=== PATIENT | male | born 1955 | race Hispanic/Latino ===

== ENCOUNTER 2018-09-30 17:30 | Inpatient (IN) | payer OTHER | END 2018-10-05 13:50 | disposition home or self-care (01) | LOC: 2AH 17:30 | PROC: 4A023N8 Measurement of Cardiac Sampling and Pressure, Bilateral, Percutaneous Approach (ICD-10-PCS; principal; ~2018-09-30) | PROC: B2161ZZ Fluoroscopy of Right and Left Heart using Low Osmolar Contrast (ICD-10-PCS; ~2018-09-30) | DX: I24.9 Acute ischemic heart disease, unspecified (principal); I50.43 Acute on chronic combined systolic (congestive) and diastolic (congestive) heart failure; I11.0 Hypertensive heart disease with heart failure; R00.1 Bradycardia, unspecified; I25.10 Atherosclerotic heart disease of native coronary artery without angina pectoris; I05.2 Rheumatic mitral stenosis with insufficiency; I27.20 Pulmonary hypertension, unspecified ==

== ENCOUNTER 2018-12-12 10:00 | Inpatient (IN) | payer OTHER ==
[~2018-12-12] VITALS: Ht 172.7 cm; Wt 127.9 kg
[~2018-12-12 10:00] MED LIST: AMIO200T5 PO; ATOR20TA65 PO; CARV6.25 PO; ISOS30TA6 PO; LEVO175T64 PO; LISI40TA4 PO
[2018-12-13 12:42] VITALS: BP 134/59
[2018-12-13 12:55] LABS: HEMOGLOBIN A1C 6.9 % (4.0-6.0)
[2018-12-13 13:05] LABS: CREATININE 1.9 mg/dL (0.5-1.5); POTASSIUM 5.7 mmol/L (3.5-5.1)
[2018-12-13 13:12] LABS: INR 1.05 (0.85-1.15); PARTIAL THROMBOPLASTIN TIME 28.4 SEC (26.3-35.5)
[2018-12-13] MEDS ORDERED: RIVA20TA PO (13:22)
[2018-12-13] MEDS ORDERED: FURO20TA4 PO (13:25)
[2018-12-13] MEDS ORDERED: [UNRECOGNIZED DRUG - MIXTURE] (13:25)
[2018-12-13] MEDS ORDERED: CINN500C PO (13:25)
--- NOTE | 2018-12-13 13:31 | NUR ---
PT TOOK XERALTO TODAY 12-13-18 IN AM. CALLED NAKITA MENDIOLA RN AND IS AWARE NO NEW ORDERS AT THIS TIME.
[2018-12-13 13:49] LABS: BASOPHILS % (AUTO) 0.7 % (0.0-5.0); EOSINOPHILS % (AUTO) 1.5 % (0.0-8.0); LYMPHOCYTES % (AUTO) 15.2 % (21.0-51.0); MEAN CORPUSCULAR HEMOGLOBIN 31.9 pg (27.0-33.0); MEAN CORPUSCULAR HGB CONC 34.7 g/dL (32.0-36.0); MONOCYTES % (AUTO) 7.1 % (3.0-13.0); NEUTROPHILS % (AUTO) 75.5 % (40.0-77.0); NUCLEATED RED BLOOD CELLS 0.2 % (0.0-0.19); PLATELET COUNT (AUTO) 140 K/uL (130-400); RED BLOOD CELL COUNT(AUTO) 3.58 MIL/uL (4.50-6.20); RED CELL DISTRIBUTION WIDTH 16.4 % (11.0-15.5); WHITE BLOOD COUNT (AUTO) 6.5 K/uL (4.8-10.8)
[2018-12-16] VITALS (26 sets, daily range): BP systolic 76–132; BP diastolic 32–75
[2018-12-16] MEDS: CEFUROXIME SODIUM 1.5 GM VIAL IVP SCH ×2 (05:00→11:25)
[2018-12-16] MEDS ORDERED: SODIUM CHLORIDE 0.9% 1000ML 1,000 ML IV ONE (06:40)
--- NOTE | 2018-12-16 07:15 | NUR ---
POTENTIAL FOR INFECTION: SHAVED FROM CHIN TO BILATERAL FEET PER ZINA TAPIA, FOLLOWED BY WIPING WITH EDMOND: 2% CHLORHEXIDINE GLUCONATE PATIENTS PRE-OP SKIN PREP.
[2018-12-16] MEDS ORDERED: NITROGLYCERIN 50 MG/D5% WATER 1 BOT ONE (07:44)
[2018-12-16] MEDS ORDERED: DELNIDO FORMULA 2 BAG IV ONE (10:35)
[2018-12-16] MEDS ORDERED: NOREPINEPHRINE BITARTRATE 1 MG/1 ML ML IV ONE ×3 (10:37→19:00)
[2018-12-16] MEDS ORDERED: ONDANSETRON HCL 4 MG/2 ML VIAL ONE (11:09)
[2018-12-16] MEDS ORDERED: PROPOFOL 10 MG/ML 20ML VIAL IV ONE (11:09)
[2018-12-16] MEDS ORDERED: LIDOCAINE PF 2% 5ML ABBOJECT ONE ×2 (11:09→11:12)
[2018-12-16] MEDS ORDERED: GLYCOPYRROLATE 1 MG/5 ML SYRINGE ONE ×2 (11:09→15:41)
[2018-12-16] MEDS ORDERED: DEXAMETHASONE SOD PHOSPHATE 10MG/ML 1ML VIAL ONE (11:09)
[2018-12-16] MEDS ORDERED: SUCCINYLCHOLINE 200MG/10ML SYR ONE (11:09)
[2018-12-16] MEDS ORDERED: NEOSTIGMINE 5MG/5ML SYR IV ONE (11:10)
[2018-12-16] MEDS ORDERED: MIDAZOLAM HCL 1 MG/ML 2ML VIAL ONE ×2 (11:11→11:13)
[2018-12-16] MEDS ORDERED: ROCURONIUM 10MG/1ML SYR 10 MG/ML ML ONE ×2 (11:11→11:13)
[2018-12-16] MEDS ORDERED: FENTANYL CITRATE PF 50 MCG/1 ML 2ML VIAL ONE (11:11)
[2018-12-16] MEDS ORDERED: SODIUM BICARB 50MEQ 50ML VIAL ONE ×3 (11:12→15:52)
[2018-12-16] MEDS ORDERED: ESMOLOL HCL 10 MG/ML 10 ML VIAL ONE (11:12)
[2018-12-16] MEDS ORDERED: PROTAMINE SULFATE 10 MG/ML 25ML VIAL IV ONE (11:12)
[2018-12-16] MEDS ORDERED: EPINEPHRINE 1 MG/ML AMPULE ONE (11:12)
[2018-12-16] MEDS ORDERED: HEPARIN SODIUM 1000UNIT/ML 10ML VIAL ONE (11:12)
[2018-12-16] MEDS ORDERED: FENTANYL CITRATE PF 50 MCG/1 ML 20ML VIAL IJ ONE (11:13)
[2018-12-16] MEDS ORDERED: AMINOCAPROIC ACID 250 MG/ML 20 ML VIAL IV ONE ×2 (11:13→13:40)
[2018-12-16] MEDS ORDERED: PAPAVERINE HCL 30 MG/ML 2ML VIAL ONE (12:00)
[2018-12-16] MEDS ORDERED: OCTYL 2-CYANOACRYLATE 1 EACH TP ONE (12:00)
[2018-12-16] MEDS ORDERED: BACITRACIN 50,000 UNIT VIAL ONE (12:01)
[2018-12-16 12:17] LABS: ABG HCO3 17.2 mmol/L (21.0-28.0); ABG OXYGEN SATURATION 98.9 % (95.0-99.0); ABG PCO2 34 mmHg (35-48)
[2018-12-16] MEDS ORDERED: Q-PUMP 1 EACH IRRIG SCH (12:30)
[2018-12-16] MEDS ORDERED: SODIUM CHLORIDE 0.9% 250 ML IV PRN (12:30)
[2018-12-16] MEDS ORDERED: PROPOFOL 1000 MG/100 ML 100 ML IV PRN (12:30)
[2018-12-16] MEDS ORDERED: ALBUMIN (HUMAN) 5% 250 ML IV PRN (12:30)
[2018-12-16] MEDS ORDERED: POTASSIUM PHOS 15 mMOL+NS250ML 250 ML IV PRN (12:30)
[2018-12-16] MEDS ORDERED: SODIUM CHLORIDE 0.9% 1000ML 1,000 ML IV SCH (12:30)
[2018-12-16] MEDS ORDERED: AMINOCAPROIC ACID 15,000 MG in SODIUM CHLORIDE 0.9% 250 ML IV SCH (12:30)
[2018-12-16] MEDS ORDERED: GLUCAGON 1MG KIT 1 MG ML IM PRN (12:30)
[2018-12-16] MEDS ORDERED: SODIUM CHLORIDE 0.9% 10 ML VIAL IVP PRN (12:30)
[2018-12-16] MEDS ORDERED: ONDANSETRON HCL 4 MG/2 ML VIAL IV PRN (12:30)
[2018-12-16] MEDS ORDERED: MAGNESIUM 2GM PREMIX 50ML 50 ML IV PRN (12:30)
[2018-12-16] MEDS ORDERED: NITROGLYCERIN 50 MG/D5% WATER 250 BOT IV SCH (12:30)
[2018-12-16] MEDS ORDERED: NOREPINEPHRINE 4MG/NS 250ML 250 ML IV PRN (12:30)
[2018-12-16] MEDS ORDERED: ACETAMINOPHEN 650 MG SUPPOSITORY RC PRN (12:30)
[2018-12-16] MEDS ORDERED: ROPIVACAINE 0.2% 2MG/ML 100ML VIAL IJ ONE (13:00)
[2018-12-16 13:38] LABS: ABG BASE EXCESS -4.3 mmol/L (-2.0-3.0); ABG HCO3 20.8 mmol/L (21.0-28.0); ABG PCO2 38 mmHg (35-48)
[2018-12-16] MEDS ORDERED: MANNITOL 25% 50ML VIAL IV ONE (13:40)
[2018-12-16] MEDS ORDERED: PHENYLEPHRINE HCL 10 MG/ML 1ML VIAL IV ONE (13:40)
[2018-12-16] MEDS ORDERED: LIDOCAINE PF 2% 5ML ABBOJECT IVP ONE (13:40)
[2018-12-16] MEDS ORDERED: CALCIUM CHLORIDE 100 MG/ML 10 ML SYG IVP ONE (13:40)
[2018-12-16] MEDS ORDERED: MAGNESIUM SULFATE 1 GM/2 ML VIAL IM ONE (13:40)
[2018-12-16] MEDS ORDERED: ALBUMIN (HUMAN) 25% 50 ML IV ONE (13:40)
[2018-12-16] MEDS ORDERED: SODIUM BICARB 8.4% 50ML SYRINGE IVP ONE (13:40)
[2018-12-16] MEDS ORDERED: HEPARIN SODIUM 1000UNIT/ML 10ML VIAL IV ONE (13:40)
[2018-12-16 14:20] LABS: ABG BASE EXCESS -8.5 mmol/L (-2.0-3.0); ABG HCO3 17.5 mmol/L (21.0-28.0); ABG OXYGEN SATURATION 98.7 % (95.0-99.0); ABG PCO2 38 mmHg (35-48)
[2018-12-16 14:35] LABS: ABG BASE EXCESS -2.4 mmol/L (-2.0-3.0); ABG HCO3 23.3 mmol/L (21.0-28.0); ABG OXYGEN SATURATION 98.4 % (95.0-99.0); ABG PCO2 44 mmHg (35-48)
[2018-12-16] MEDS ORDERED: SUCCINYLCHOLINE CHLORIDE 20 MG/ML 10 ML VIAL IVP ONE (14:38)
[2018-12-16] MEDS ORDERED: ETOMIDATE 2 MG/ML 10 ML VIAL IVP ONE (14:38)
[2018-12-16] MEDS ORDERED: ROCURONIUM BROMIDE 10MG/1ML 5ML VL IV ONE (14:38)
[2018-12-16] MEDS ORDERED: INSULIN HUMULIN R 100 UNIT/ML 3ML ONE (14:39)
[2018-12-16 15:06] LABS: ABG BASE EXCESS -6.8 mmol/L (-2.0-3.0); ABG HCO3 19.3 mmol/L (21.0-28.0); ABG OXYGEN SATURATION 98.1 % (95.0-99.0); ABG PCO2 41 mmHg (35-48)
[2018-12-16 15:23] LABS: ABG BASE EXCESS -2.3 mmol/L (-2.0-3.0); ABG HCO3 23.9 mmol/L (21.0-28.0); ABG OXYGEN SATURATION 96.8 % (95.0-99.0); ABG PCO2 48 mmHg (35-48)
[2018-12-16] MEDS ORDERED: AMIODARONE HCL 50 MG/ML 3 ML VIAL ONE (15:33)
[2018-12-16] MEDS ORDERED: ROPIVACAINE 0.5% 5MG/ML 30ML IJ ONE (15:45)
[2018-12-16] MEDS ORDERED: CEFUROXIME SODIUM 1.5 GM VIAL ONE (15:50)
[2018-12-16] MEDS ORDERED: SODIUM BICARB 8.4% 50ML SYRINGE ONE (15:55)
[2018-12-16 15:56] LABS: ABG BASE EXCESS -6.1 mmol/L (-2.0-3.0); ABG HCO3 18.4 mmol/L (21.0-28.0); ABG OXYGEN SATURATION 98.4 % (95.0-99.0); ABG PCO2 32 mmHg (35-48)
[2018-12-16 16:18] LABS: ABG BASE EXCESS -1.4 mmol/L (-2.0-3.0); ABG HCO3 22.4 mmol/L (21.0-28.0); ABG OXYGEN SATURATION 98.1 % (95.0-99.0); ABG PCO2 34 mmHg (35-48)
[2018-12-16] MEDS ORDERED: VASOPRESSIN 20 UNITS/ML 1ML VIAL ONE (16:28)
[2018-12-16] MEDS ORDERED: EPHEDRINE SULFATE 50 MG/ML AMPULE ONE (16:48)
[2018-12-16] MEDS ORDERED: COAGULATION FACTOR VIIA RECOMB 1 MG VIAL IV SCH (17:00)
[2018-12-16] MEDS ORDERED: ALBUMIN (HUMAN) 5% 250 ML IV ONE (17:12)
--- NOTE | 2018-12-16 17:15 | NUR ---
ARRIVAL TO CVR Report received from APRIL Hendrix. Orally intubated, tolerating vent settings as prescribed. Dr. Verde at bedside. Refer to physical assessment. 7.5 Fr IABP 40cc balloon to left femoral noted, no hematoma noted to site. Pulses by doppler. Ventricular paced at 80, tolerating temporary pacemaker settings. Will continue to monitor.
[2018-12-16 17:27] LABS: ABG BASE EXCESS -6.1 mmol/L (-2.0-3.0); ABG OXYGEN SATURATION 94.9 % (95.0-99.0); ABG PCO2 41 mmHg (35-48)
[2018-12-16] MEDS: SODIUM BICARB 50MEQ 50ML VIAL IV PRN ×5 (17:30→22:59)
[2018-12-16] MEDS: CEFAZOLIN SODIUM 1 GM VIAL IV SCH (17:30)
--- NOTE | 2018-12-16 18:08 | NUR ---
PT CARE IABC advanced by with placement confirmation by xray - reviewed by MD at bedside.
[2018-12-16] MEDS: EPINEPHRINE 8 MG in DEXTROSE 5%-WATER 250 ML IV PRN (18:15)
[2018-12-16] MEDS: CALCIUM GLUCONATE 1 GM in SODIUM CHLORIDE 0.9% 50 ML IV PRN ×4 (18:16→22:21)
[2018-12-16] MEDS: POTASSIUM CHLORIDE 20MEQ/100ML 100 ML IV PRN ×4 (18:18→23:49)
[2018-12-16] MEDS: VASOPRESSIN 20 UNITS in SODIUM CHLORIDE 0.9% 50 ML IV PRN ×2 (18:19→21:14)
[2018-12-16] MEDS: INSULIN REGULAR, HUMAN 3ML 100 UNIT in SODIUM CHLORIDE 0.9% 99 ML IV SCH ×2 (18:21)
[2018-12-16 18:49] LABS: ABG HCO3 31.8 mmol/L (21.0-28.0); ABG OXYGEN SATURATION 98.6 % (95.0-99.0); ABG PCO2 41 mmHg (35-48)
[2018-12-16] MEDS ORDERED: PHARMACY COMMUNICATION MISC SCH ×2 (19:00→19:15)
[2018-12-16 19:41] LABS: HEMATOCRIT 24.4 % (42-54); MEAN CORPUSCULAR HEMOGLOBIN 31.5 pg (27.0-33.0); MEAN CORPUSCULAR VOLUME 92.6 fL (79-99); NUCLEATED RED BLOOD CELLS 0.1 % (0.0-0.19); PLATELET COUNT (AUTO) 157 K/uL (130-400); RED BLOOD CELL COUNT(AUTO) 2.63 MIL/uL (4.50-6.20); RED CELL DISTRIBUTION WIDTH 15.8 % (11.0-15.5); WHITE BLOOD COUNT (AUTO) 20.3 K/uL (4.8-10.8)
--- NOTE | 2018-12-16 19:45 | NUR ---
MD NOTIFICATION Dr. Duke notified of status, labs, vital signs, pressors, new orders received and will carry out.
[2018-12-16 20:02] LABS: INR 1.09 (0.85-1.15); PARTIAL THROMBOPLASTIN TIME 28.7 SEC (26.3-35.5); PROTHROMBIN TIME 11.4 SEC (9.6-11.6)
[2018-12-16 20:07] LABS: ABG BASE EXCESS -5.8 mmol/L (-2.0-3.0); ABG HCO3 18.4 mmol/L (21.0-28.0); ABG OXYGEN SATURATION 98.2 % (95.0-99.0); ABG PCO2 32 mmHg (35-48)
[2018-12-16 20:12] LABS: CREATININE 1.2 mg/dL (0.5-1.5); MAGNESIUM 2.7 mg/dL (1.80-2.40); PHOSPHORUS 4.7 mg/dL (2.5-4.9); POTASSIUM 3.9 mmol/L (3.5-5.1)
--- NOTE | 2018-12-16 20:34 | NUR ---
CONSULT Dr. Milner occupational health nurse manager for [facility] notified of patient's arrival to CVR and status, no orders received.
[2018-12-16] MEDS: ATORVASTATIN CALCIUM 40 MG TABLET PO SCH (21:00)
[2018-12-16 21:07] LABS: ABG BASE EXCESS -0.8 mmol/L (-2.0-3.0); ABG HCO3 22.9 mmol/L (21.0-28.0); ABG OXYGEN SATURATION 97.6 % (95.0-99.0); ABG PCO2 34 mmHg (35-48)
[2018-12-16] MEDS: FAMOTIDINE/PF 20 MG/2 ML VIAL IV SCH (21:31)
[2018-12-16 22:19] LABS: ABG BASE EXCESS -0.4 mmol/L (-2.0-3.0); ABG HCO3 22.8 mmol/L (21.0-28.0); ABG PCO2 32 mmHg (35-48)
[2018-12-16] MEDS ORDERED: CALCIUM GLUCONATE 1 GM/10 ML VIAL IV ONE (22:19)
[2018-12-16 23:13] LABS: ABG BASE EXCESS 0.5 mmol/L (-2.0-3.0); ABG HCO3 23.3 mmol/L (21.0-28.0); ABG OXYGEN SATURATION 97.5 % (95.0-99.0); ABG PCO2 31 mmHg (35-48)
[2018-12-17] VITALS (79 sets, daily range): BP systolic 75–132; BP diastolic 32–84
--- NOTE | 2018-12-17 | NUR ---
DR. ERICH JUNG CALLED UPDATED ON PT STATUS LATEST VS, ABG, I&O, AND DRIPS REPORTED. NEW ORDERS RECEIVED AND WILL BE CARRIED OUT.
[2018-12-17 00:10] LABS: ABG BASE EXCESS -0.4 mmol/L (-2.0-3.0); ABG OXYGEN SATURATION 96.7 % (95.0-99.0); ABG PCO2 33 mmHg (35-48)
[2018-12-17] MEDS: SODIUM BICARB 50MEQ 50ML VIAL IV PRN (00:12)
--- NOTE | 2018-12-17 01:00 | NUR ---
STATUS PT BEGINNING TO WAKE UP AT THIS TIME. NODS YES OR NO TO QUESTIONS MOVES BILATERAL EXTS WITH SEVERE WEAKNESS.
[2018-12-17 01:18] LABS: ABG BASE EXCESS 2.1 mmol/L (-2.0-3.0); ABG HCO3 25.6 mmol/L (21.0-28.0); ABG OXYGEN SATURATION 95.6 % (95.0-99.0); ABG PCO2 36 mmHg (35-48)
[2018-12-17] MEDS: CEFAZOLIN SODIUM 1 GM VIAL IV SCH ×3 (01:21→16:43)
[2018-12-17] MEDS: POTASSIUM CHLORIDE 20MEQ/100ML 100 ML IV PRN ×2 (01:21→05:27)
[2018-12-17 02:14] LABS: ABG BASE EXCESS 3.2 mmol/L (-2.0-3.0); ABG HCO3 26.7 mmol/L (21.0-28.0); ABG OXYGEN SATURATION 96.4 % (95.0-99.0); ABG PCO2 37 mmHg (35-48)
[2018-12-17] MEDS: NOREPINEPHRINE BITARTRATE 8 MG in SODIUM CHLORIDE 0.9% 250 ML IV SCH ×3 (02:15→21:33)
[2018-12-17] MEDS: VASOPRESSIN 20 UNITS in SODIUM CHLORIDE 0.9% 50 ML IV PRN ×2 (02:17→07:13)
[2018-12-17 03:13] LABS: ABG BASE EXCESS 2.6 mmol/L (-2.0-3.0); ABG HCO3 26.2 mmol/L (21.0-28.0); ABG OXYGEN SATURATION 96.8 % (95.0-99.0); ABG PCO2 37 mmHg (35-48)
[2018-12-17 04:09] LABS: ABG BASE EXCESS 5.6 mmol/L (-2.0-3.0); ABG HCO3 29.9 mmol/L (21.0-28.0); ABG OXYGEN SATURATION 96.6 % (95.0-99.0); ABG PCO2 42 mmHg (35-48)
[2018-12-17 05:00] LABS: HEMATOCRIT 33.8 % (42-54); MEAN CORPUSCULAR HEMOGLOBIN 30.8 pg (27.0-33.0); MEAN CORPUSCULAR HGB CONC 35.3 g/dL (32.0-36.0); NUCLEATED RED BLOOD CELLS 0.1 % (0.0-0.19); PLATELET COUNT (AUTO) 109 K/uL (130-400); RED BLOOD CELL COUNT(AUTO) 3.89 MIL/uL (4.50-6.20); RED CELL DISTRIBUTION WIDTH 16.1 % (11.0-15.5); WHITE BLOOD COUNT (AUTO) 18.2 K/uL (4.8-10.8)
[2018-12-17 05:08] LABS: INR 1.26 (0.85-1.15); PARTIAL THROMBOPLASTIN TIME 27.8 SEC (26.3-35.5); PROTHROMBIN TIME 13.1 SEC (9.6-11.6)
[2018-12-17] MEDS: LEVOTHYROXINE 100 MCG TABLET PO SCH (05:12)
[2018-12-17] MEDS: LEVOTHYROXINE 75 MCG TABLET PO SCH (05:12)
[2018-12-17 05:15] LABS: CREATININE 2.2 mg/dL (0.5-1.5); MAGNESIUM 2.3 mg/dL (1.80-2.40); PHOSPHORUS 2.3 mg/dL (2.5-4.9)
[2018-12-17] MEDS ORDERED: PHARMACY COMMUNICATION MISC SCH ×3 (05:15→07:45)
[2018-12-17 05:23] LABS: ABG BASE EXCESS 4.9 mmol/L (-2.0-3.0); ABG HCO3 28.1 mmol/L (21.0-28.0); ABG OXYGEN SATURATION 96.9 % (95.0-99.0); ABG PCO2 36 mmHg (35-48)
[2018-12-17] MEDS ORDERED: DEXTROSE 5%-WATER 1,000 ML IV ONE (05:30)
[2018-12-17 06:32] LABS: ABG BASE EXCESS 5.3 mmol/L (-2.0-3.0); ABG HCO3 28.8 mmol/L (21.0-28.0); ABG OXYGEN SATURATION 96.6 % (95.0-99.0); ABG PCO2 38 mmHg (35-48)
--- NOTE | 2018-12-17 06:47 | NUR ---
DR. ERICH JUNG CALLED AT THIS TIME UPDATED ON PT STATUS LATEST, VS, DRIPS, AND I&OS REPORTED. ORDERS TO WEAN OF VENT PER PROTOCOL GIVEN. WILL CONTINUE TO MONITOR.
--- NOTE | 2018-12-17 07:00 | NUR ---
AM NOTE Easy to arouse, follows commands. Remains orally intubated, no sedation. Weaning to extubate as ordered by MD. Will wean off drips as tolerated. IABP 1:1 frequency on EKG trigger, no hematoma noted to left femoral site. Pulses by doppler. Epicardial pacemaker at bedside, tolerating settings as prescribed, Vpaced at 80.
--- NOTE | 2018-12-17 07:15 | NUR ---
REPORT REPORT GIVEN TO STEPHANE CHEN. PT AWAKE FOLLOWING COMMAND REMAINS WITH SEVERE GENERALIZED WEAKNESS.
[2018-12-17] MEDS: ASPIRIN 325MG EC TAB 325 MG TABLET.DR PO SCH (07:57)
[2018-12-17] MEDS: FUROSEMIDE 10 MG/ML 2ML VIAL IV SCH ×2 (09:08→20:55)
[2018-12-17] MEDS: FAMOTIDINE/PF 20 MG/2 ML VIAL IV SCH ×2 (09:09→20:55)
[2018-12-17 10:00] LABS: ABG BASE EXCESS 5.1 mmol/L (-2.0-3.0); ABG HCO3 28.4 mmol/L (21.0-28.0); ABG OXYGEN SATURATION 96.9 % (95.0-99.0); ABG PCO2 37 mmHg (35-48)
--- NOTE | 2018-12-17 10:05 | NUR ---
EXTUBATION Pt fully awake, follows commands. Able to sustain head-lift, strong bilateral hand engineering coordinator. Arterial blood gas results within normal limits. Negative inspiratory force [id number], extubated and placed on Aerosol mask at 40%, sustaining 100% O2 saturation. Instructed not to speak for 2 hrs, nods understanding.
--- NOTE | 2018-12-17 11:05 | NUR ---
SHAKEEL Gee from [facility] in to see pt. Update given, new orders received and will carry out.
--- NOTE | 2018-12-17 11:05 | NUR ---
[facility] [employer] representative made aware of interrogation order by SHAKEEL Vivar.
[2018-12-17 11:16] LABS: ABG BASE EXCESS 4.3 mmol/L (-2.0-3.0); ABG HCO3 28.4 mmol/L (21.0-28.0); ABG OXYGEN SATURATION 96.5 % (95.0-99.0); ABG PCO2 41 mmHg (35-48)
[2018-12-17] MEDS: INSULIN REGULAR, HUMAN 3ML 100 UNIT in SODIUM CHLORIDE 0.9% 99 ML IV SCH ×2 (11:21)
[2018-12-17] MEDS: EPINEPHRINE 8 MG in DEXTROSE 5%-WATER 250 ML IV PRN (13:39)
--- NOTE | 2018-12-17 14:19 | NUR ---
0955- per nursing, patient is not ready for PT Evaluation today. Addendum: 12/17/18 at 1420 by TRENT TESFAYE, PT PT Amended: Links added.
--- NOTE | 2018-12-17 16:00 | NUR ---
INTERROGATION Don Roldan from [facility] in to interrogate implantable permanent pacemaker, no abnormal findings. SHAKEEL Ferreira from [facility] notified, new order received to turn off the epicardial pacemaker, carried out. Dr. Duke made aware.
[2018-12-17 17:38] LABS: ABG BASE EXCESS -0.9 mmol/L (-2.0-3.0); ABG HCO3 22.7 mmol/L (21.0-28.0); ABG OXYGEN SATURATION 94.6 % (95.0-99.0); ABG PCO2 35 mmHg (35-48)
[2018-12-17] MEDS: ACETAMINOPHEN 325 MG TAB PO PRN (17:44)
--- NOTE | 2018-12-17 18:19 | NUR ---
CHANDRIKA PLAN PATIENT S/P CABG TRANSFERRED OUT OF CV TODAY. CHANDLER WILL CONTINUE TO FOLLOW. Addendum: 12/17/18 at 1819 by HUGO RUSS RN CM Amended: Links added.
[2018-12-17] MEDS ORDERED: TRAMADOL HCL 50 MG TABLET PO PRN (20:30)
[2018-12-17 20:43] LABS: ABG HCO3 25.2 mmol/L (21.0-28.0); ABG OXYGEN SATURATION 92.2 % (95.0-99.0); ABG PCO2 34 mmHg (35-48)
[2018-12-17] MEDS: ATORVASTATIN CALCIUM 40 MG TABLET PO SCH (20:55)
[2018-12-17] MEDS: TRAMADOL HCL 50 MG TABLET PO PRN (20:55)
[2018-12-18] VITALS (89 sets, daily range): BP systolic 72–197; BP diastolic 28–78
[2018-12-18 00:28] LABS: ABG BASE EXCESS 2.4 mmol/L (-2.0-3.0); ABG HCO3 23.6 mmol/L (21.0-28.0); ABG OXYGEN SATURATION 99.2 % (95.0-99.0); ABG PCO2 28 mmHg (35-48)
[2018-12-18] MEDS: EPINEPHRINE 8 MG in DEXTROSE 5%-WATER 250 ML IV PRN (02:00)
[2018-12-18] MEDS: VASOPRESSIN 20 UNITS in SODIUM CHLORIDE 0.9% 50 ML IV PRN ×3 (02:00→22:05)
--- NOTE | 2018-12-18 04:00 | NUR ---
Physician notification Notified Dr. Duke of patient progressive confusion, anxiety, and restlessness. Notified of most recent ABG and current hemodynamic status and rate of infusion. No new orders were received. Will continue to monitor patient closely.
[2018-12-18 04:10] LABS: ABG BASE EXCESS 2.5 mmol/L (-2.0-3.0); ABG HCO3 22.7 mmol/L (21.0-28.0); ABG OXYGEN SATURATION 99.2 % (95.0-99.0); ABG PCO2 25 mmHg (35-48)
[2018-12-18] MEDS: SODIUM CHLORIDE 0.9% 500ML 500 ML IV SCH (04:12)
[2018-12-18 04:51] LABS: HEMATOCRIT 27.2 % (42-54); MEAN CORPUSCULAR HGB CONC 34.6 g/dL (32.0-36.0); MEAN CORPUSCULAR VOLUME 86.9 fL (79-99); NUCLEATED RED BLOOD CELLS 0.3 % (0.0-0.19); PLATELET COUNT (AUTO) 79 K/uL (130-400); RED BLOOD CELL COUNT(AUTO) 3.12 MIL/uL (4.50-6.20); RED CELL DISTRIBUTION WIDTH 17.3 % (11.0-15.5); WHITE BLOOD COUNT (AUTO) 21.2 K/uL (4.8-10.8)
[2018-12-18 05:03] LABS: CREATININE 3.6 mg/dL (0.5-1.5); MAGNESIUM 2.1 mg/dL (1.80-2.40); POTASSIUM 4.6 mmol/L (3.5-5.1)
[2018-12-18] MEDS ORDERED: CALCIUM GLUCONATE 1 GM/10 ML VIAL IV ONE ×3 (07:00→23:39)
[2018-12-18] MEDS: LEVOTHYROXINE 75 MCG TABLET PO SCH (07:02)
[2018-12-18] MEDS: LEVOTHYROXINE 100 MCG TABLET PO SCH (07:02)
[2018-12-18] MEDS: CALCIUM GLUCONATE 1 GM in SODIUM CHLORIDE 0.9% 50 ML IV PRN ×6 (07:03→23:46)
[2018-12-18] MEDS: INSULIN HUMULIN R 100 UNIT/ML 3ML SQ SCH ×4 (07:30→21:00)
[2018-12-18] MEDS: METOPROLOL TARTRATE 25 MG TAB PO SCH ×2 (07:36→21:00)
[2018-12-18] MEDS: ZOSYN 3.375GM+NS 50ML 50 ML IV SCH ×2 (08:06→20:04)
[2018-12-18] MEDS: FUROSEMIDE 100 MG in SODIUM CHLORIDE 0.9% 90 ML IV PRN ×3 (08:06→22:03)
[2018-12-18] MEDS: ASPIRIN 325MG EC TAB 325 MG TABLET.DR PO SCH (08:07)
[2018-12-18] MEDS ORDERED: FUROSEMIDE 20 MG TABLET PO SCH (09:00)
--- NOTE | 2018-12-18 09:31 | NUR ---
PT NOTED TACHYPNEIC AND RESTLESS ON NC 4 . ABG COMPLETED AND PT PLACED BACK ON BIPAP ORDERED.
[2018-12-18 09:32] LABS: ABG BASE EXCESS 1.2 mmol/L (-2.0-3.0); ABG HCO3 23.9 mmol/L (21.0-28.0); ABG OXYGEN SATURATION 93.7 % (95.0-99.0); ABG PCO2 33 mmHg (35-48)
[2018-12-18] MEDS: FAMOTIDINE 20MG TAB 20 MG TAB PO SCH (09:32)
--- NOTE | 2018-12-18 09:38 | NUR ---
Howard COFFMAN PARTS SPECIALIST AT BEDSIDE. PLAN OF CARE DISCUSSED.
[2018-12-18 10:44] LABS: HEMATOCRIT 26.8 % (42-54); MEAN CORPUSCULAR HEMOGLOBIN 29.7 pg (27.0-33.0); MEAN CORPUSCULAR HGB CONC 33.7 g/dL (32.0-36.0); MEAN CORPUSCULAR VOLUME 88.4 fL (79-99); NUCLEATED RED BLOOD CELLS 0.2 % (0.0-0.19); PLATELET COUNT (AUTO) 81 K/uL (130-400); RED BLOOD CELL COUNT(AUTO) 3.03 MIL/uL (4.50-6.20); RED CELL DISTRIBUTION WIDTH 17.4 % (11.0-15.5); WHITE BLOOD COUNT (AUTO) 19.7 K/uL (4.8-10.8)
[2018-12-18 11:00] LABS: CREATININE 3.9 mg/dL (0.5-1.5); POTASSIUM 5.4 mmol/L (3.5-5.1)
--- NOTE | 2018-12-18 11:08 | NUR ---
patient is not ready for PT Evaluation per Nursing.Pt. still on balloon pump. Addendum: 12/18/18 at 1109 by TRENT TESFAYE, PT PT Amended: Links added.
[2018-12-18 11:17] LABS: BILIRUBIN,TOTAL 3.9 mg/dL (0.2-1.0); TOTAL PROTEIN, SERUM 5.6 g/dL (6.0-8.3)
[2018-12-18 11:47] LABS: ABG BASE EXCESS -4.3 mmol/L (-2.0-3.0); ABG HCO3 19.7 mmol/L (21.0-28.0); ABG OXYGEN SATURATION 85.9 % (95.0-99.0); ABG PCO2 32 mmHg (35-48)
--- NOTE | 2018-12-18 11:50 | NUR ---
PT CONTINUES VERY RESTLESS, RR 30-40S. DECREASED URINE OUTPUT AND DECREASED BP NOTED. REPEAT LABS AND ABG RESULTS GIVEN TO DR. JUNG. NEW ORDERS RECEIVED AND NOTED. Dread JOSEPH CALLED FOR REINTUBATION ORDERED.
--- NOTE | 2018-12-18 12:10 | NUR ---
DR. JOSEPH AT BEDSIDE, PT INTUBATED WITH ETT 8.5 21 LIPS. PLACEMENT CONFIRMED BY CXR. TRANSFUSING 1ST UNTI OF PRBC ORDERED, DR. JOSEPH TITRATING DRIPS NEEDED. PT CURRENTLY ON EPI 0.02 MCGS/KG/MIN, VASOPRESSIN 0.08 UNITS/HR AND LEVOPHED AT 20 MCGS/MIN. REPLACING CALCIUM ORDERED.CO 5.7/CI 2.6/ SCVR INCREASED FROM 500 TO 1241. FAMILY CALLED AND UPDATED IN PT CONDITION, ALL QUESTIONS ANSWERED.. PT PARTIAL UPPER AND LOWER DENTURES AT BEDSIDE. CONTINUE TO MONITOR PT. Addendum: 12/18/18 at 1458 by RICK JEAN RN RN EPI AT 0.2 MCGS/KG/MIN
[2018-12-18] MEDS ORDERED: METHYLPREDNISOLONE SOD SUCC 125MG/2ML VIAL ONE (12:25)
[2018-12-18 12:28] LABS: ABG BASE EXCESS -2.1 mmol/L (-2.0-3.0); ABG HCO3 22.4 mmol/L (21.0-28.0); ABG OXYGEN SATURATION 96.2 % (95.0-99.0); ABG PCO2 37 mmHg (35-48)
[2018-12-18] MEDS: SODIUM BICARB 50MEQ 50ML VIAL IV PRN (12:36)
--- NOTE | 2018-12-18 13:30 | NUR ---
DR. JUNG CALLED AND UPDATED IN PT CONDITION/HEMODYNAMICS/LABS/DRIPS. PLAN OF CARE DISCUSSED.
--- NOTE | 2018-12-18 13:40 | NUR ---
TRANSFUSING 2ND UNIT PRBC ORDERED. PT TOLERATING WELL. NO ADVERSE REACTION NOTED.
[2018-12-18 13:45] LABS: ABG BASE EXCESS 0.7 mmol/L (-2.0-3.0); ABG HCO3 25.6 mmol/L (21.0-28.0); ABG OXYGEN SATURATION 93.9 % (95.0-99.0); ABG PCO2 42 mmHg (35-48)
--- NOTE | 2018-12-18 13:45 | NUR ---
DR. JOSEPH AT BEDSIDE. UPDATED ON LAST ABG RESULTS.
[2018-12-18 15:13] LABS: ABG BASE EXCESS 0.5 mmol/L (-2.0-3.0); ABG HCO3 25.9 mmol/L (21.0-28.0); ABG OXYGEN SATURATION 81.9 % (95.0-99.0); ABG PCO2 44 mmHg (35-48)
[2018-12-18] MEDS ORDERED: METOLAZONE 2.5 MG TABLET PO SCH (15:45)
[2018-12-18 16:47] LABS: ABG BASE EXCESS 1.7 mmol/L (-2.0-3.0); ABG OXYGEN SATURATION 96.9 % (95.0-99.0); ABG PCO2 40 mmHg (35-48)
[2018-12-18 17:06] LABS: POTASSIUM 4.9 mmol/L (3.5-5.1)
[2018-12-18 17:36] LABS: ABG BASE EXCESS 2.9 mmol/L (-2.0-3.0); ABG HCO3 27.3 mmol/L (21.0-28.0); ABG OXYGEN SATURATION 96.7 % (95.0-99.0); ABG PCO2 41 mmHg (35-48)
--- NOTE | 2018-12-18 18:20 | NUR ---
DR. JUNG AT BEDSIDE TO SEE PT. PLAN OF CARE DISCUSSED. NEW ORDERS RECEIVED AND NOTED. TEMPORARY PACER CONNECTED TO PACING WIRES AND SET AT VOO 70 STIM 18 ORDERED. PACING AND CAPTURING CORRECTLY. VALENCIA OF CARE DISCUSSED WITH FAMILY AT BEDSIDE. ALL QUESTIONS ANSWERED.
[2018-12-18] MEDS ORDERED: ARTIFICAL TEARS SOL 15 ML OS PRN (18:30)
[2018-12-18 18:55] LABS: ABG BASE EXCESS 2.4 mmol/L (-2.0-3.0); ABG HCO3 26.8 mmol/L (21.0-28.0); ABG OXYGEN SATURATION 97.6 % (95.0-99.0); ABG PCO2 41 mmHg (35-48)
[2018-12-18] MEDS: ATORVASTATIN CALCIUM 40 MG TABLET PO SCH (20:04)
[2018-12-18 20:06] LABS: ABG HCO3 24.4 mmol/L (21.0-28.0); ABG OXYGEN SATURATION 97.6 % (95.0-99.0); ABG PCO2 35 mmHg (35-48)
[2018-12-18 21:07] LABS: ABG BASE EXCESS 1.7 mmol/L (-2.0-3.0); ABG HCO3 24.5 mmol/L (21.0-28.0); ABG PCO2 32 mmHg (35-48)
--- NOTE | 2018-12-18 21:27 | NUR ---
Dr. Duke updated on patient status. Patient started getting hypotensive and vasopressors increased. also made aware of cardiac output and SVV,SVR CI. 1 unit of blood ordered.
[2018-12-18] MEDS: ACETAMINOPHEN 325 MG TAB PO PRN (22:12)
[2018-12-18 23:35] LABS: ABG BASE EXCESS 1.5 mmol/L (-2.0-3.0); ABG HCO3 23.2 mmol/L (21.0-28.0); ABG OXYGEN SATURATION 97.9 % (95.0-99.0); ABG PCO2 28 mmHg (35-48)
[2018-12-18 23:37] LABS: ABG BASE EXCESS 0.4 mmol/L (-2.0-3.0); ABG HCO3 21.9 mmol/L (21.0-28.0); ABG OXYGEN SATURATION 98.2 % (95.0-99.0); ABG PCO2 27 mmHg (35-48)
[2018-12-18] MEDS: NOREPINEPHRINE BITARTRATE 8 MG in SODIUM CHLORIDE 0.9% 250 ML IV SCH (23:48)
[2018-12-19] VITALS (93 sets, daily range): BP systolic 68–163; BP diastolic 33–94
[2018-12-19 01:50] LABS: ABG BASE EXCESS 0.9 mmol/L (-2.0-3.0); ABG HCO3 23.7 mmol/L (21.0-28.0); ABG OXYGEN SATURATION 98.7 % (95.0-99.0); ABG PCO2 32 mmHg (35-48)
[2018-12-19] MEDS ORDERED: CALCIUM GLUCONATE 1 GM/10 ML VIAL IV ONE ×4 (01:52→23:55)
[2018-12-19] MEDS: FUROSEMIDE 100 MG in SODIUM CHLORIDE 0.9% 90 ML IV PRN ×3 (03:19→15:16)
[2018-12-19] MEDS ORDERED: VASOPRESSIN 20 UNITS/ML 1ML VIAL ONE (03:46)
[2018-12-19 03:52] LABS: MEAN CORPUSCULAR HEMOGLOBIN 30.2 pg (27.0-33.0); MEAN CORPUSCULAR VOLUME 86.3 fL (79-99); PLATELET COUNT (AUTO) 52 K/uL (130-400); RED BLOOD CELL COUNT(AUTO) 4.06 MIL/uL (4.50-6.20); RED CELL DISTRIBUTION WIDTH 16.7 % (11.0-15.5); WHITE BLOOD COUNT (AUTO) 12.5 K/uL (4.8-10.8)
[2018-12-19] MEDS: VASOPRESSIN 20 UNITS in SODIUM CHLORIDE 0.9% 50 ML IV PRN ×4 (03:56→15:16)
[2018-12-19 04:11] LABS: ALBUMIN 2.9 g/dL (3.5-5.0); BILIRUBIN,TOTAL 7.6 mg/dL (0.2-1.0); CREATININE 4.6 mg/dL (0.5-1.5); TOTAL PROTEIN, SERUM 5.5 g/dL (6.0-8.3)
[2018-12-19] MEDS: ACETAMINOPHEN 325 MG TAB PO PRN ×2 (04:51→10:00)
[2018-12-19 04:52] LABS: ABG BASE EXCESS 1.7 mmol/L (-2.0-3.0); ABG HCO3 24.2 mmol/L (21.0-28.0); ABG OXYGEN SATURATION 97.7 % (95.0-99.0); ABG PCO2 31 mmHg (35-48)
[2018-12-19] MEDS: CALCIUM GLUCONATE 1 GM in SODIUM CHLORIDE 0.9% 50 ML IV PRN ×5 (04:58→15:51)
[2018-12-19] MEDS: EPINEPHRINE 8 MG in DEXTROSE 5%-WATER 250 ML IV PRN (04:58)
[2018-12-19] MEDS: LEVOTHYROXINE 100 MCG TABLET PO SCH (05:47)
[2018-12-19] MEDS: LEVOTHYROXINE 75 MCG TABLET PO SCH (05:48)
--- NOTE | 2018-12-19 06:15 | NUR ---
Sacha BECKFORD at bedside and updated. He mentioned that he would set the permanent pacemeker to 80BPM and turn off epicardial pacer.
[2018-12-19] MEDS: INSULIN HUMULIN R 100 UNIT/ML 3ML SQ SCH ×4 (07:30→21:17)
[2018-12-19 07:34] LABS: ABG BASE EXCESS 1.2 mmol/L (-2.0-3.0); ABG HCO3 23.6 mmol/L (21.0-28.0); ABG OXYGEN SATURATION 98.1 % (95.0-99.0); ABG PCO2 31 mmHg (35-48)
--- NOTE | 2018-12-19 08:00 | NUR ---
DR. JUNG CALLED AND UPDATED IN PT STATUS/LAB RESULTS AND FEVER 103.2. NEW ORDERS RECEIVED AND NOTED.
[2018-12-19] MEDS ORDERED: PHARMACY COMMUNICATION MISC SCH ×2 (08:15→17:45)
[2018-12-19] MEDS: NOREPINEPHRINE BITARTRATE 8 MG in SODIUM CHLORIDE 0.9% 250 ML IV SCH ×2 (08:20→13:17)
[2018-12-19] MEDS: METOPROLOL TARTRATE 25 MG TAB PO SCH ×2 (08:40→21:00)
[2018-12-19 08:53] LABS: BILIRUBIN,DIRECT 6.3 mg/dL (0.0-0.3); BILIRUBIN,TOTAL 8.7 mg/dL (0.2-1.0)
[2018-12-19] MEDS: ENOXAPARIN SODIUM 30 MG/0.3 ML SQ SCH (09:00)
[2018-12-19 09:07] LABS: INR 1.88 (0.85-1.15); PARTIAL THROMBOPLASTIN TIME 31.9 SEC (26.3-35.5); PROTHROMBIN TIME 19.3 SEC (9.6-11.6)
[2018-12-19] MEDS ORDERED: LEVOFLOXACIN 500 MG/D5W 100 ML 100 ML IV SCH (09:15)
[2018-12-19] MEDS: ZOSYN 3.375GM+NS 50ML 50 ML IV SCH ×2 (09:40→20:59)
[2018-12-19 09:42] LABS: ABG BASE EXCESS -0.6 mmol/L (-2.0-3.0); ABG HCO3 21.4 mmol/L (21.0-28.0); ABG OXYGEN SATURATION 97.4 % (95.0-99.0); ABG PCO2 28 mmHg (35-48)
[2018-12-19] MEDS ORDERED: LIDOCAINE HCL 1% MDV 50ML VIAL ONE (09:45)
[2018-12-19] MEDS: FAMOTIDINE 20MG TAB 20 MG TAB PO SCH (10:00)
--- NOTE | 2018-12-19 10:00 | NUR ---
DR. DOMINGUEZ CALLED AND NOTIFIED OF CONSULT.
[2018-12-19] MEDS: ASPIRIN 325MG EC TAB 325 MG TABLET.DR PO SCH (10:01)
[2018-12-19] MEDS: SODIUM BICARB 50MEQ 50ML VIAL IV PRN ×2 (10:04→11:45)
[2018-12-19] MEDS ORDERED: ALBUMIN (HUMAN) 5% 250 ML IV ONE ×2 (10:07→13:06)
--- NOTE | 2018-12-19 10:30 | NUR ---
DR. LUNDY AT BEDSIDE FOR HD CATHETER PLACEMENT. TELEPHONE CONSENT OBTAINED AND IN CHART.
--- NOTE | 2018-12-19 11:00 | NUR ---
TRANSFUSING 1 UNIT PRBC ORDERED. PT TOLERATED WELL. CONTINUES ON EPI AT 0.17 MCGS/KG/MIN, LEVOPHED AT 20 MCGS/MIN AND VASOPRESSIN AT 0.06 UNITS/MIN, TITRATING TOLERATED. CONTINUES WITH UNSTABLE SBP 80-110.
[2018-12-19 11:22] LABS: ABG BASE EXCESS -0.5 mmol/L (-2.0-3.0); ABG HCO3 22.7 mmol/L (21.0-28.0); ABG OXYGEN SATURATION 96.9 % (95.0-99.0); ABG PCO2 33 mmHg (35-48)
--- NOTE | 2018-12-19 12:04 | NUR ---
ST [facility] REP AT BEDSIDE. PERMANENT PACEMAKER SETTINGS CHANGED TO DDIR 70, PT INTRINSIC RHYTHM IS AFIB/A FLUTTER. TEMPORARY PACEMAKER OFF. PPM PACING CORRECTLY.
[2018-12-19 12:45] LABS: CREATININE 5.3 mg/dL (0.5-1.5); POTASSIUM 4.8 mmol/L (3.5-5.1)
--- NOTE | 2018-12-19 13:00 | NUR ---
DR. DOMINGUEZ AT BEDSIDE. PLAN OF CARE DISCUSSED WITH DAUGHTER T BEDSIDE. PT UNSTABLE AT THIS TIME FOR HD. ALL QUESTIONS ANSWERED.
[2018-12-19 13:26] LABS: ABG BASE EXCESS -2.8 mmol/L (-2.0-3.0); ABG HCO3 20.8 mmol/L (21.0-28.0); ABG OXYGEN SATURATION 96.7 % (95.0-99.0); ABG PCO2 33 mmHg (35-48)
[2018-12-19] MEDS ORDERED: SODIUM BICARB 50MEQ 50ML VIAL ONE ×2 (13:31)
[2018-12-19] MEDS ORDERED: ALBUMIN (HUMAN) 5% 250 ML IV PRN (14:15)
--- NOTE | 2018-12-19 14:59 | NUR ---
11:05 PATIENT IS NOT READY FOR PHYSICAL THERAPY EVALUATION PER APRIL CABRERA. PATIENT WAS REINTUBATED THIS AM. Addendum: 12/19/18 at 1500 by TRENT TESFAYE, PT PT Amended: Links added.
[2018-12-19 15:21] LABS: APPEARANCE,URINE CLEAR (CLEAR); BILIRUBIN,URINE NEGATIVE (NEGATIVE); COLOR,URINE YELLOW (YELLOW); GLUCOSE, URINE (UA) NEGATIVE (NEGATIVE); KETONES,URINE NEGATIVE (NEGATIVE); LEUKOCYTE ESTERASE ,URINE NEGATIVE (NEGATIVE); NITRATE,URINE NEGATIVE (NEGATIVE); OCCULT BLOOD,URINE LARGE (NEGATIVE); PH,URINE 6.5 (5.0-8.0); PROTEIN,URINE 100 mg/dL (NEGATIVE); UROBILINOGEN,URINE 0.2 mg/dL (0.2-1.0)
[2018-12-19 15:24] LABS: SODIUM,URINE RANDOM 113 mmol/l (40-220)
[2018-12-19 15:47] LABS: BACTERIA,URINE Rare /HPF (None Seen); SQUAMOUS EPITHELIAL CELL,UR Rare /HPF (0-2); WBC,URINE 0-1 /HPF (0-1)
[2018-12-19] MEDS: MILRINONE-D5W 20 MG/100 ML 100 ML IV PRN (15:51)
--- NOTE | 2018-12-19 16:00 | NUR ---
DR. JUNG AT BEDSIDE. PLAN OF CARE DISUSSED. PT STARTED ON MILRINONE AT 0.25 MCGS/KG/MIN ORDERED. IABP SET AT 1:3.
[2018-12-19 16:35] LABS: ABG BASE EXCESS 1.2 mmol/L (-2.0-3.0); ABG HCO3 23.9 mmol/L (21.0-28.0); ABG OXYGEN SATURATION 88.3 % (95.0-99.0); ABG PCO2 31 mmHg (35-48)
[2018-12-19] MEDS ORDERED: ATROPINE SULFATE 0.1 MG/ML 10 ML SYG IVP ONE (16:35)
[2018-12-19] MEDS ORDERED: DOPAMINE HCL 400 MG/D5%-WATER 0 ML IV ONE (16:35)
[2018-12-19] MEDS ORDERED: HEPARIN SODIUM 1000UNIT/ML 10ML VIAL ONE (16:35)
[2018-12-19] MEDS ORDERED: LIDOCAINE HCL 2% 20ML ONE (16:35)
[2018-12-19] MEDS ORDERED: IODIXANOL 320 MG/ML 100 ML VIAL ONE (16:36)
--- NOTE | 2018-12-19 17:00 | NUR ---
DR. MIR AT BEDSIDE. PLAN OF CARE DISCUSSED. PLAN FOR EXCHANGE OF IABP FOR IMPELLA/SWAN DISHA PLACEMENT TODAY. PLAN DISCUSSED WITH DAUGHTER WELL COMPLICATIONS ASSOCIATED WITH IMPELLA PLACEMENT. ALL QUESTIONS ANSWERED. CONSENT SIGNED AND IN CHART.
[2018-12-19] MEDS ORDERED: MIDAZOLAM HCL 1 MG/ML 2ML VIAL ONE (17:30)
[2018-12-19] MEDS ORDERED: FENTANYL CITRATE PF 50 MCG/1 ML 2ML VIAL ONE (17:31)
--- NOTE | 2018-12-19 17:59 | NUR ---
Procedure being done at bedside. Addendum: 12/19/18 at 1800 by RT ML RT Amended: Links added.
[2018-12-19] MEDS ORDERED: HEPARIN SODIUM 5000 UNIT/ML 25,000 UNIT in DEXTROSE 5%-WATER 500 ML SQ SCH (18:00)
[2018-12-19] MEDS ORDERED: HEPARIN 25000 UNITS/250 ML D5W 250 ML IV ONE (18:21)
--- NOTE | 2018-12-19 18:45 | NUR ---
IABP PUMPED DISCONTINUED AND IMPELLA PLACED TO LEFT FEMORAL ARTERY BY DR. MIR. SITE INTACT, NO HEMATOMA NOTED. UNABLE TO FIND DORSALIS PEDIS OR POSTERIOR TIBIALIS DOPPLER PULSES TO LET FOOT. CAPILLARY REFILL PROLONGED. DR. MIR AWARE. RIGHT SWAN DISHA INSERTED VIA CORDIS. ASBP 80-90S. DR. JUNG CALLED AND UPDATED.
[2018-12-19 19:45] LABS: ABG OXYGEN SATURATION 63.9 % (95.0-99.0); HCO3,VENOUS BLOOD GAS 24.1 (21.0-28.0); PCO2,VENOUS BLOOD GAS 33 (35-48)
--- NOTE | 2018-12-19 20:32 | NUR ---
Dr. Duke at bedside and updated on patient status. ordered to lower the vasopressin to .o.4 and work on weaning Epinepherine down below .15 mcg/kg/min. Family at bedside and Dr. Duke updated on patient condition. All questions answered. Addendum: 12/19/18 at 2035 by AYAD BRANHAM RN RN Dr. Duke aware of lefe lower extremity unable to find pulse. will continue to monitor and update MD with any changes.
--- NOTE | 2018-12-19 20:52 | NUR ---
Dr. Duke notified of low blood pressure. Vasopressin was dropped to 0.[address] Duke was at bedside but patient did not tolerate change in rate. MD notified and vasopressin titrated back to 0.06 and will continue to monitor.
[2018-12-19] MEDS: ATORVASTATIN CALCIUM 40 MG TABLET PO SCH (20:59)
--- NOTE | 2018-12-19 22:58 | NUR ---
Dr. duffy called and gave orders for a series of labs to be drawn to check for Adrenal Crisis. Dr. Duke was called and updated and was OK with tests and treatment.
[2018-12-19 23:10] LABS: HEMATOCRIT 33.3 % (42-54); MEAN CORPUSCULAR HEMOGLOBIN 29.6 pg (27.0-33.0); MEAN CORPUSCULAR HGB CONC 33.8 g/dL (32.0-36.0); MEAN CORPUSCULAR VOLUME 87.7 fL (79-99); NUCLEATED RED BLOOD CELLS 1.3 % (0.0-0.19); PLATELET COUNT (AUTO) 32 K/uL (130-400); RED BLOOD CELL COUNT(AUTO) 3.79 MIL/uL (4.50-6.20); RED CELL DISTRIBUTION WIDTH 18.3 % (11.0-15.5); WHITE BLOOD COUNT (AUTO) 12.2 K/uL (4.8-10.8)
[2018-12-19 23:45] LABS: ABG BASE EXCESS -0.7 mmol/L (-2.0-3.0); ABG HCO3 20.9 mmol/L (21.0-28.0); ABG OXYGEN SATURATION 97.7 % (95.0-99.0); ABG PCO2 26 mmHg (35-48)
[2018-12-19 23:53] LABS: BAND NEUTROPHILS % (MANUAL) 11 % (0-2); LYMPHOCYTES % (MANUAL) 13 % (22-44); MONOCYTES % (MANUAL) 1 % (2-9); SEGMENTED NEUTROPHILS % 75 % (40-70)
[2018-12-19 23:54] LABS: MAN.DIFF COMMENT-IMPRESSION MANUAL DIFFERENTIAL; PLATELET MORPHOLOGY COMMENT MARKED DECREASE
[2018-12-20] VITALS (49 sets, daily range): BP systolic 75–140; BP diastolic 56–87
[2018-12-20] MEDS: FUROSEMIDE 100 MG in SODIUM CHLORIDE 0.9% 90 ML IV PRN ×3 (00:01→22:27)
[2018-12-20] MEDS: VASOPRESSIN 20 UNITS in SODIUM CHLORIDE 0.9% 50 ML IV PRN ×3 (00:01→18:20)
[2018-12-20] MEDS: EPINEPHRINE 8 MG in SODIUM CHLORIDE 0.9% 250 ML IV PRN ×3 (00:01→23:31)
[2018-12-20 00:10] LABS: APPEARANCE,URINE Cloudy (CLEAR); BILIRUBIN,URINE Small (NEGATIVE); COLOR,URINE Dark Yellow (YELLOW); GLUCOSE, URINE (UA) TRACE mg/dL (NEGATIVE); KETONES,URINE Trace mg/dL (NEGATIVE); LEUKOCYTE ESTERASE ,URINE Trace (NEGATIVE); NITRATE,URINE Negative (NEGATIVE); OCCULT BLOOD,URINE Large (NEGATIVE); PH,URINE 5.5 (5.0-8.0); PROTEIN,URINE POS 2+ mg/dL (NEGATIVE)
[2018-12-20 00:21] LABS: BACTERIA,URINE None Seen /HPF (None Seen); MUCUS,URINE Few LPF (None Seen); SQUAMOUS EPITHELIAL CELL,UR Few /HPF (0-2); WBC,URINE 0-1 /HPF (0-1)
--- NOTE | 2018-12-20 00:21 | NUR ---
Dr. Duke called the unit and wanted an update on patient. MD made aware that urine output was less than 15/hr, but continues to be clear/lynnette in color. Patient is able to move foot at this time, even though he is not following commands. Updated MD on the drip rates, and he was OK with current settings.
[2018-12-20] MEDS ORDERED: METHYLPREDNISOLONE SOD SUCC 125MG/2ML VIAL IVP SCH (01:00)
[2018-12-20 02:20] LABS: ABG BASE EXCESS -1.1 mmol/L (-2.0-3.0); ABG HCO3 21.1 mmol/L (21.0-28.0); ABG PCO2 28 mmHg (35-48)
[2018-12-20] MEDS ORDERED: CALCIUM GLUCONATE 1 GM/10 ML VIAL IV ONE ×2 (02:37→06:19)
[2018-12-20 03:38] LABS: HEMATOCRIT 30.6 % (42-54); MEAN CORPUSCULAR HGB CONC 34.8 g/dL (32.0-36.0); PLATELET COUNT (AUTO) 31 K/uL (130-400); RED BLOOD CELL COUNT(AUTO) 3.55 MIL/uL (4.50-6.20); RED CELL DISTRIBUTION WIDTH 17.9 % (11.0-15.5); WHITE BLOOD COUNT (AUTO) 11.3 K/uL (4.8-10.8)
[2018-12-20 04:07] LABS: ALBUMIN 2.9 g/dL (3.5-5.0); BILIRUBIN,TOTAL 12.2 mg/dL (0.2-1.0); CREATININE 6.2 mg/dL (0.5-1.5); MAGNESIUM 2.2 mg/dL (1.80-2.40); PHOSPHORUS 7.3 mg/dL (2.5-4.9); POTASSIUM 4.9 mmol/L (3.5-5.1)
[2018-12-20] MEDS ORDERED: HEPARIN SODIUM 5000UNIT/ML 1ML VIAL ONE ×2 (04:13→13:51)
[2018-12-20] MEDS ORDERED: PHARMACY COMMUNICATION MISC SCH ×2 (04:15→19:30)
[2018-12-20 04:51] LABS: B-TYPE NATRIURETIC PEPTIDE 1370 pg/mL (0-100)
[2018-12-20 05:35] LABS: ABG BASE EXCESS -0.6 mmol/L (-2.0-3.0); ABG HCO3 21.5 mmol/L (21.0-28.0); ABG OXYGEN SATURATION 98.4 % (95.0-99.0); ABG PCO2 28 mmHg (35-48)
[2018-12-20] MEDS: LEVOTHYROXINE 100 MCG TABLET PO SCH (06:11)
[2018-12-20] MEDS: LEVOTHYROXINE 75 MCG TABLET PO SCH (06:11)
[2018-12-20] MEDS: INSULIN HUMULIN R 100 UNIT/ML 3ML SQ SCH (06:37)
[2018-12-20] MEDS ORDERED: HEPARIN SODIUM SQ SCH (07:00)
[2018-12-20] MEDS ORDERED: WATER SQ SCH (07:00)
[2018-12-20] MEDS ORDERED: DEXTROSE 5% SQ SCH (07:00)
--- NOTE | 2018-12-20 07:00 | NUR ---
RECEIVED REPORT FROM EDGE GLUE MACHINE TENDER RN. PATIENT INTUBATED, WITH IMPELLA SUPPORT. ON LEVOPHED, EPINEPHRINE, VASOPRESSIN AND LASIX IV DRIP. CARDIAC OUTPUT MONITOR (CO 5.3). PATIENT ALERT TO STIMULATION, DOES NOT FOLLOW COMMANDS. FAMILY MEMBER ASLEEP IN ROOM RECLINER.
--- NOTE | 2018-12-20 07:36 | NUR ---
DR. ORTIZ AT BEDSIDE. INFORMED DR. ORTIZ ON PATIENT STATUS AND LABS. DR. ORTIZ USED DOPPLER TO LOCATE LLE PULSES, CLAIMS HE FOUND THEM WEAK AND FAINT. NO NEW ORDERS GIVEN.
--- NOTE | 2018-12-20 07:51 | NUR ---
COMPLETED D5W WITH HEPARIN 41806 UNITS PURGE CHANGE ON IMPELLA.
[2018-12-20] MEDS: THIAMINE HCL 100 MG/ML 2ML VIAL IVP SCH (08:31)
[2018-12-20] MEDS: ZOSYN 3.375GM+NS 50ML 50 ML IV SCH ×2 (08:31→20:20)
--- NOTE | 2018-12-20 08:50 | NUR ---
DR. JUNG VISITED AND ASSESSED PATIENT. UPDATED ON PATIENT STATUS AND LABS. ORDERS GIVEN SEE CHART.
[2018-12-20] MEDS: ASPIRIN 325MG EC TAB 325 MG TABLET.DR PO SCH (09:00)
[2018-12-20] MEDS: METOPROLOL TARTRATE 25 MG TAB PO SCH ×2 (09:00→20:26)
[2018-12-20] MEDS: ENOXAPARIN SODIUM 30 MG/0.3 ML SQ SCH (09:00)
--- NOTE | 2018-12-20 09:00 | NUR ---
DR. LANGLEY VISITED AND ASSESSED PATIENT. UPDATED ON PATIENT STATUS AND LABS.
[2018-12-20] MEDS ORDERED: FAMOTIDINE/PF 20 MG/2 ML VIAL IV SCH (09:45)
--- NOTE | 2018-12-20 10:40 | NUR ---
DR. MIR VISITED AND ASSESSED PATIENT. UPDATED ON PATIENT STATUS AND LABS.
[2018-12-20] MEDS: METHYLPREDNISOLONE SOD SUCC 125MG/2ML VIAL IVP SCH ×2 (10:43→18:22)
--- NOTE | 2018-12-20 11:05 | NUR ---
per APRIL Matias,to HOLD Physical Therapy Evaluation today. Will check with Nursing tomorrow. Addendum: 12/20/18 at 1107 by TRENT TESFAYE, PT PT Amended: Links added.
[2018-12-20] MEDS: INSULIN REGULAR, HUMAN 3ML 100 UNIT in SODIUM CHLORIDE 0.9% 99 ML IV PRN ×4 (11:13→22:06)
[2018-12-20 11:23] LABS: ABG BASE EXCESS -0.1 mmol/L (-2.0-3.0); ABG HCO3 22.7 mmol/L (21.0-28.0); ABG PCO2 32 mmHg (35-48)
--- NOTE | 2018-12-20 12:00 | NUR ---
PATIENT STARTED ON HEMODIALYSIS.
[2018-12-20] MEDS ORDERED: ALBUMIN (HUMAN) 25% 100 ML IV PRN (12:15)
[2018-12-20] MEDS ORDERED: ALBUMIN (HUMAN) 25% 100 ML IV ONE (12:16)
[2018-12-20 12:22] LABS: INR 1.89 (0.85-1.15); PARTIAL THROMBOPLASTIN TIME 52.6 SEC (26.3-35.5); PROTHROMBIN TIME 19.4 SEC (9.6-11.6)
[2018-12-20 13:15] LABS: % IRON SATURATION 98.4 % (30-44)
--- NOTE | 2018-12-20 14:00 | NUR ---
PATIENT HAS FINISHED DIALYSIS.
[2018-12-20] MEDS ORDERED: SODIUM CHLORIDE 0.9% 1000ML 1,000 ML IV PRN (14:15)
[2018-12-20] MEDS ORDERED: 0.9% SODIUM CHLORIDE 1000 ML IV BAG IV PRN (14:15)
[2018-12-20] MEDS ORDERED: NITROGLYCERIN 0.4 MG SL TAB SL PRN (14:15)
[2018-12-20] MEDS ORDERED: HEPARIN SODIUM 5000UNIT/ML 1ML VIAL IJ PRN (14:15)
[2018-12-20] MEDS: NOREPINEPHRINE BITARTRATE 8 MG in SODIUM CHLORIDE 0.9% 250 ML IV SCH ×3 (14:50)
--- NOTE | 2018-12-20 15:30 | NUR ---
DR. HINOJOSA VISITED PATIENT. UPDATED ON PATIENT STATUS AND LABS.
[2018-12-20 16:05] LABS: CREATININE 5.1 mg/dL (0.5-1.5); MAGNESIUM 2.1 mg/dL (1.80-2.40); PHOSPHORUS 5.4 mg/dL (2.5-4.9); POTASSIUM 4.2 mmol/L (3.5-5.1)
[2018-12-20 16:11] LABS: HEMATOCRIT 30.3 % (42-54); LYMPHOCYTES % (AUTO) 2.5 % (21.0-51.0); MEAN CORPUSCULAR HEMOGLOBIN 29.3 pg (27.0-33.0); MEAN CORPUSCULAR HGB CONC 33.7 g/dL (32.0-36.0); MONOCYTES % (AUTO) 2.4 % (3.0-13.0); NEUTROPHILS % (AUTO) 95.1 % (40.0-77.0); NUCLEATED RED BLOOD CELLS 1.1 % (0.0-0.19); PLATELET COUNT (AUTO) 28 K/uL (130-400); RED BLOOD CELL COUNT(AUTO) 3.49 MIL/uL (4.50-6.20); WHITE BLOOD COUNT (AUTO) 13.5 K/uL (4.8-10.8)
[2018-12-20 17:01] LABS: EOSINOPHILS % (MANUAL) 1 % (1-6); LYMPHOCYTES % (MANUAL) 3 % (22-44); MONOCYTES % (MANUAL) 2 % (2-9); SEGMENTED NEUTROPHILS % 94 % (40-70)
[2018-12-20 17:02] LABS: MAN.DIFF COMMENT-IMPRESSION MANUAL DIFFERENTIAL
--- NOTE | 2018-12-20 17:30 | NUR ---
DR. JUNG CALLED UNIT. UPDATED MD ON PATIENT CURRENT STATUS AND LABS. ORDERS GIVEN SEE CHART.
--- NOTE | 2018-12-20 17:59 | NUR ---
ALL CHEST TUBES REMOVED PER DR. JUNG ORDERS.
[2018-12-20] MEDS: CALCIUM GLUCONATE 1 GM in SODIUM CHLORIDE 0.9% 50 ML IV PRN ×2 (18:32→18:34)
--- NOTE | 2018-12-20 19:30 | NUR ---
ASSESSMENT PT ASSESSED AT THIS TIME. PT DROWSY AROUSED BY VERBAL STIMULI NODS TO QUESTIONS. PT WITH GENERALIZED WEAKNESS SLIGHTLY MOVING ALL EXTS EQUALLY. PT ON MECHANICAL VENTILATION VIA ET TUBE 8.5 TAPPED AT APPROXIMATELY 23 CM LIP. VENT SETTINGS AC RATE 12, VT 750, PEEP 5, FIO2 60%. LEFT FEMORAL IMPELLA NOTED GOOD SIGNAL WAVEFORM NOTED. OOZING AT INSERTION SITE NOTED. PULSES TO L-DP ABSENT,L- PT PULSE IS PRESENT WITH DOPPLER. RIJ CORDIS INFUSING WELL WOTJ INDERJIT NOTED MEASUREMENT AT APPROXIMATELY 60 CM. LEFT IJ HD CATH NOTED. LEFT RADIAL A LINE WITH GOOD WAVEFORM. PARTIDA TO GRAVITY DRAINING RITU URINE. SEE ASSESSMENT
[2018-12-20] MEDS: ATORVASTATIN CALCIUM 40 MG TABLET PO SCH (20:26)
[2018-12-20] MEDS: SODIUM CHLORIDE 0.9% 500ML 500 ML IV SCH (20:55)
[2018-12-21] VITALS (35 sets, daily range): BP systolic 78–117; BP diastolic 51–99
[2018-12-21] MEDS: VASOPRESSIN 20 UNITS in SODIUM CHLORIDE 0.9% 50 ML IV PRN ×2 (01:52→11:40)
[2018-12-21] MEDS: METHYLPREDNISOLONE SOD SUCC 125MG/2ML VIAL IVP SCH ×2 (02:04→09:36)
[2018-12-21] MEDS: LEVOTHYROXINE 75 MCG TABLET PO SCH (04:33)
[2018-12-21] MEDS: LEVOTHYROXINE 100 MCG TABLET PO SCH (04:33)
[2018-12-21 04:38] LABS: BASOPHILS % (AUTO) 0.1 % (0.0-5.0); EOSINOPHILS % (AUTO) 0.3 % (0.0-8.0); HEMATOCRIT 26.4 % (42-54); MEAN CORPUSCULAR HEMOGLOBIN 30.2 pg (27.0-33.0); MEAN CORPUSCULAR HGB CONC 34.9 g/dL (32.0-36.0); MEAN CORPUSCULAR VOLUME 86.6 fL (79-99); MONOCYTES % (AUTO) 1.8 % (3.0-13.0); NEUTROPHILS % (AUTO) 95.8 % (40.0-77.0); PLATELET COUNT (AUTO) 21 K/uL (130-400); RED BLOOD CELL COUNT(AUTO) 3.05 MIL/uL (4.50-6.20); RED CELL DISTRIBUTION WIDTH 17.6 % (11.0-15.5); WHITE BLOOD COUNT (AUTO) 16.2 K/uL (4.8-10.8)
[2018-12-21 04:47] LABS: INR 1.74 (0.85-1.15); PARTIAL THROMBOPLASTIN TIME 46.4 SEC (26.3-35.5); PROTHROMBIN TIME 17.9 SEC (9.6-11.6)
[2018-12-21 04:53] LABS: B-TYPE NATRIURETIC PEPTIDE 496 pg/mL (0-100)
[2018-12-21 04:56] LABS: CREATININE 6.1 mg/dL (0.5-1.5); MAGNESIUM 2.2 mg/dL (1.80-2.40); POTASSIUM 4.9 mmol/L (3.5-5.1); THYROID STIMULATING HORMONE 3.23 uIU/mL (0.36-3.74)
[2018-12-21 05:05] LABS: ABG HCO3 26.8 mmol/L (21.0-28.0); ABG OXYGEN SATURATION 96.8 % (95.0-99.0); ABG PCO2 33 mmHg (35-48)
[2018-12-21] MEDS ORDERED: CALCIUM GLUCONATE 1 GM/10 ML VIAL IV ONE (05:08)
[2018-12-21] MEDS: CALCIUM GLUCONATE 1 GM in SODIUM CHLORIDE 0.9% 50 ML IV PRN ×3 (05:11→13:48)
[2018-12-21 07:15] LABS: HEPATITIS A ANTIBODY IGM Negative (Negative); HEPATITIS B CORE IGM Negative (Negative); HEPATITIS Bs ANTIGEN SCREEN P Negative (Negative)
[2018-12-21] MEDS: THIAMINE HCL 100 MG/ML 2ML VIAL IVP SCH (07:32)
[2018-12-21] MEDS: ZOSYN 3.375GM+NS 50ML 50 ML IV SCH ×2 (07:32→21:02)
--- NOTE | 2018-12-21 07:45 | NUR ---
DR. ABARCA VISITED AND ASSESSED PATIENT. UPDATED ON PATIENT STATUS AND LABS.
--- NOTE | 2018-12-21 07:56 | NUR ---
IDENTIFIED POSTERIOR TIBIAL PULSE ON LLE WITH DOPPLER.
[2018-12-21] MEDS: METOPROLOL TARTRATE 25 MG TAB PO SCH ×2 (08:22→21:00)
[2018-12-21] MEDS: ENOXAPARIN SODIUM 30 MG/0.3 ML SQ SCH (08:23)
[2018-12-21] MEDS: ASPIRIN 325MG EC TAB 325 MG TABLET.DR PO SCH (09:00)
[2018-12-21] MEDS ORDERED: LEVOFLOXACIN 250 MG/D5W 50ML 50 ML IVPB SCH (09:00)
--- NOTE | 2018-12-21 10:10 | NUR ---
DR. FERREIRA CALLED ICU UNIT. UPDATED ON PATIENT STATUS AND LABS. ORDERS GIVEN SEE CHART.
[2018-12-21 10:51] LABS: ABG BASE EXCESS 1.4 mmol/L (-2.0-3.0); ABG HCO3 23.5 mmol/L (21.0-28.0); ABG OXYGEN SATURATION 97.1 % (95.0-99.0); ABG PCO2 30 mmHg (35-48)
[2018-12-21] MEDS: EPINEPHRINE 8 MG in SODIUM CHLORIDE 0.9% 250 ML IV PRN (11:21)
[2018-12-21] MEDS: FUROSEMIDE 100 MG in SODIUM CHLORIDE 0.9% 90 ML IV PRN (11:51)
[2018-12-21 12:57] LABS: INR 1.82 (0.85-1.15); PARTIAL THROMBOPLASTIN TIME 45.5 SEC (26.3-35.5); PROTHROMBIN TIME 18.7 SEC (9.6-11.6)
[2018-12-21 13:25] LABS: BASOPHILS % (AUTO) 0.2 % (0.0-5.0); EOSINOPHILS % (AUTO) 0.2 % (0.0-8.0); HEMATOCRIT 25.2 % (42-54); MEAN CORPUSCULAR HEMOGLOBIN 29.7 pg (27.0-33.0); MEAN CORPUSCULAR HGB CONC 34.5 g/dL (32.0-36.0); MONOCYTES % (AUTO) 1.6 % (3.0-13.0); NUCLEATED RED BLOOD CELLS 0.6 % (0.0-0.19); PLATELET COUNT (AUTO) 16 K/uL (130-400); RED BLOOD CELL COUNT(AUTO) 2.93 MIL/uL (4.50-6.20); RED CELL DISTRIBUTION WIDTH 17.9 % (11.0-15.5); WHITE BLOOD COUNT (AUTO) 16.6 K/uL (4.8-10.8)
--- NOTE | 2018-12-21 13:40 | NUR ---
DR. HINOJOSA VISITED AND ASSESSED PATIENT. UPDATED ON PATIENT STATUS AND LABS.
[2018-12-21 13:45] LABS: CREATININE 6.5 mg/dL (0.5-1.5); POTASSIUM 5.3 mmol/L (3.5-5.1)
--- NOTE | 2018-12-21 14:09 | NUR ---
Nutrition Intervention: Nutrition consult per protocol. Pt. admitted with Dx of CAD/Mitral valve insuff. Pt. S/P CABGx2/MVR(12/16/18) post intubation-S/P extubation on 12/17/18. [facility] on 12/18/18 due to Resp. distress. Pt. NPO x 4 days. Labs reviewed(Alb 2.9, BUN 103, Creat 6.1, GFR 10, BG 125, Na 153). HD tx has been initiated. LBM: 12/19/18. SR-12, midsternum incision. BMI: 37.3, Obesity Grade 2. Recommendations: 1) If/when medically feasible, rec. TF with Nepro@20ml/hr, increasing rate by 5ml every 5 hrs. to goal rate of 50ml/hr. 2) Flush with 150ml free water every 6 hrs. 3) Continue to monitor pt's nutritional status. 4) Consult RD as nutrition concerns arise. Addendum: 12/21/18 at [address] Amended: Links added.
--- NOTE | 2018-12-21 14:30 | NUR ---
PATIENT STARTED ON DIALYSIS.
--- NOTE | 2018-12-21 14:46 | NUR ---
DR. JUNG RETURNED MY CALL. UPDATED ON PATIENT STATUS AND LABS. ORDERS GIVEN SEE CHART.
--- NOTE | 2018-12-21 17:10 | NUR ---
DIALYSIS FINISHED, 1.8LITERS REMOVED.
[2018-12-21] MEDS: HYDROCORTISONE SOD SUCCINATE 100 MG/2 ML VIAL IV SCH (17:36)
[2018-12-21 17:45] LABS: HEMATOCRIT 31.3 % (42-54)
--- NOTE | 2018-12-21 18:20 | NUR ---
DR. JUNG VISITED AND ASSESSED PATIENT. UPDATED ON PATIENT STATUS AND LABS.
[2018-12-21] MEDS: DEXTROSE 50%-WATER 50 ML DISP.SYRIN IV PRN (18:41)
[2018-12-21 20:55] LABS: ABG BASE EXCESS -0.4 mmol/L (-2.0-3.0); ABG HCO3 21.9 mmol/L (21.0-28.0); ABG OXYGEN SATURATION 98.4 % (95.0-99.0); ABG PCO2 28 mmHg (35-48)
[2018-12-21] MEDS: ATORVASTATIN CALCIUM 40 MG TABLET PO SCH (21:02)
[2018-12-21] MEDS: NOREPINEPHRINE BITARTRATE 8 MG in SODIUM CHLORIDE 0.9% 250 ML IV SCH (23:41)
[2018-12-22] VITALS (46 sets, daily range): BP systolic 74–124; BP diastolic 48–82
[2018-12-22] MEDS: HYDROCORTISONE SOD SUCCINATE 100 MG/2 ML VIAL IV SCH ×5 (00:40→23:57)
[2018-12-22] MEDS: TRAMADOL HCL 50 MG TABLET PO PRN ×2 (00:40→09:53)
[2018-12-22] MEDS: VASOPRESSIN 20 UNITS in SODIUM CHLORIDE 0.9% 50 ML IV PRN (01:21)
[2018-12-22] MEDS: EPINEPHRINE 8 MG in SODIUM CHLORIDE 0.9% 250 ML IV PRN (03:42)
[2018-12-22 03:59] LABS: BASOPHILS % (AUTO) 0.1 % (0.0-5.0); EOSINOPHILS % (AUTO) 0.7 % (0.0-8.0); HEMATOCRIT 26.8 % (42-54); LYMPHOCYTES % (AUTO) 1.8 % (21.0-51.0); MEAN CORPUSCULAR HEMOGLOBIN 30.1 pg (27.0-33.0); MEAN CORPUSCULAR VOLUME 85.9 fL (79-99); MONOCYTES % (AUTO) 0.7 % (3.0-13.0); NEUTROPHILS % (AUTO) 96.7 % (40.0-77.0); NUCLEATED RED BLOOD CELLS 2.1 % (0.0-0.19); PLATELET COUNT (AUTO) 39 K/uL (130-400); RED BLOOD CELL COUNT(AUTO) 3.12 MIL/uL (4.50-6.20); RED CELL DISTRIBUTION WIDTH 17.4 % (11.0-15.5); WHITE BLOOD COUNT (AUTO) 16.9 K/uL (4.8-10.8)
[2018-12-22 04:30] LABS: ALBUMIN 2.8 g/dL (3.5-5.0); CREATININE 5.9 mg/dL (0.5-1.5); MAGNESIUM 2.1 mg/dL (1.80-2.40); PHOSPHORUS 6.2 mg/dL (2.5-4.9); TOTAL PROTEIN, SERUM 5.4 g/dL (6.0-8.3)
[2018-12-22 05:17] LABS: BILIRUBIN,TOTAL 20.9 mg/dL (0.2-1.0)
--- NOTE | 2018-12-22 06:00 | NUR ---
Dr. Duke Notification Notified Dr. Duke of patient condition. absence of pulses on left leg, most recent labs, current medication infusion rates and patients hemodynamically status over all. Orders were received, readback, and entered into system.
[2018-12-22] MEDS: LEVOTHYROXINE 100 MCG TABLET PO SCH (06:34)
[2018-12-22] MEDS: LEVOTHYROXINE 75 MCG TABLET PO SCH (06:35)
[2018-12-22 07:54] LABS: ABG BASE EXCESS -4.4 mmol/L (-2.0-3.0); ABG HCO3 16.6 mmol/L (21.0-28.0); ABG OXYGEN SATURATION 98.5 % (95.0-99.0); ABG PCO2 22 mmHg (35-48)
[2018-12-22] MEDS: ZOSYN 3.375GM+NS 50ML 50 ML IV SCH ×2 (08:00→21:23)
[2018-12-22] MEDS: THIAMINE HCL 100 MG/ML 2ML VIAL IVP SCH (08:01)
[2018-12-22] MEDS: ASPIRIN 325MG EC TAB 325 MG TABLET.DR PO SCH (08:01)
[2018-12-22] MEDS: METOPROLOL TARTRATE 25 MG TAB PO SCH (08:02)
[2018-12-22] MEDS: ENOXAPARIN SODIUM 30 MG/0.3 ML SQ SCH (08:03)
[2018-12-22] MEDS: SODIUM BICARB 50MEQ 50ML VIAL IV PRN ×2 (08:14→10:56)
[2018-12-22 10:44] LABS: ABG BASE EXCESS -1.6 mmol/L (-2.0-3.0); ABG HCO3 19.6 mmol/L (21.0-28.0); ABG OXYGEN SATURATION 98.5 % (95.0-99.0); ABG PCO2 25 mmHg (35-48)
[2018-12-22 12:12] LABS: ABG BASE EXCESS -1.3 mmol/L (-2.0-3.0); ABG HCO3 19.9 mmol/L (21.0-28.0); ABG OXYGEN SATURATION 98.5 % (95.0-99.0); ABG PCO2 25 mmHg (35-48)
--- NOTE | 2018-12-22 13:15 | NUR ---
DR. MORAC HERE AND SPOKE WITH THE DAUGHTER AND DAUGHTER'S , GIVING THEM UPDATE AND PRESENT STATUS. PT HAS REMAINED AWAKE AND ALERT AND NODDING YES OR NO APPROPRIATELY.
--- NOTE | 2018-12-22 14:30 | NUR ---
DR. JUNG HERE AND INSERTING PRESS OPERATOR HERE STARTING DIALYSIS AND DR. JUNG ORDERED 300CC OF 25% ALBUMIN. GIVEN THRU THE DIALYSIS MACHINE.
--- NOTE | 2018-12-22 17:00 | NUR ---
DIALYSIS WAS COMPLETED AND PATIENT TOLERATED 2000 CC DRAWN OUT.
--- NOTE | 2018-12-22 17:30 | NUR ---
DAUGHTER HAS COME IN SEVERAL TIMES DURING THE DAY AND ONLY FOR SHORT PERIODS OF TIME AND GOES BACK OUT TO THE LOBBY.
[2018-12-22] MEDS: PANTOPRAZOLE 40 MG/VIAL IVP SCH (17:39)
--- NOTE | 2018-12-22 19:00 | NUR ---
ASSUMED CARE INTUBATED ET TUBE SECURE, VENT AC 12/750/+5/60% O2 SAT 92%. NO SEDATION. OPENS EYES WHEN CALLED BY NAME. FOLLOWS SIMPLE COMMANDS, SQUEEZES HANDS, WIGGLES TOES. BEDSIDE MONITORING. PACED RHYTHM HR 70. LEFT RADIAL ARTERIAL IBP MONITORING WITH DAMPENED WAVEFORM. CATHETER PATENT, PALPABLE RADIAL PULSES, FINGERS WARM. IMPELLA TO LEFT FEMORAL; CATHETER SECURE; SITE WITH MODERATELY SOILED DRESSING (SEROUS SANGUINOUS), NO ACTIVE BLEEDING NOTED. NO HEMATOMA NOTED TO SITE. PRESSURE DRESSING NOTED ABOVE IMPELLA INSERTION SITE. LEFT PEDAL PULSES ABSENT, LEFT POPLITEAL ARTERY PRESENT BY DOPPLER. (DR MIR AWARE). LEFT FOOT MOTTLED AND COLD. IMPELLA VALUES NOTED AND DOCUMENTED ON FLOWSHEET. GOOD PLACEMENT SIGNAL WAVEFORM. PARTIDA CATHETER IN PLACE & SECURE. NO URINE OUTPUT NOTED. RT IJ SWAN DISHA CATHETER SECURE, DRESSING DRY & INTACT. HEMODYNAMIC MONITORING IN PROCESS. ALL VALUES NOTED. OG TUBE PLACEMENT VERIFIED AND CLAMPED. DRIPS INFUSING VIA RT IJ CORDIS- EPINEPHRINE DRIP, LEVOPHED, VASOPRESSIN (REFER TO I&O'S FOR DOSAGES & RATES). DAUGHTER AT BEDSIDE. UPDATED REGARDING STATUS AND PLAN OF CARE.
[2018-12-22] MEDS ORDERED: PHARMACY COMMUNICATION MISC SCH ×2 (20:00→22:00)
[2018-12-22 21:05] LABS: ABG BASE EXCESS -5.6 mmol/L (-2.0-3.0); ABG HCO3 17.2 mmol/L (21.0-28.0); ABG OXYGEN SATURATION 98.9 % (95.0-99.0); ABG PCO2 24 mmHg (35-48)
--- NOTE | 2018-12-22 21:17 | NUR ---
REPORTED ABG RESULTS TO DR FERREIRA. ABG'S DRAWN 12/22/2018 @ 2103. ALL VALUES REPORTED TO DR FERREIRA. ORDERED NO VENT CHANGES AT THIS TIME.
[2018-12-22] MEDS ORDERED: CALCIUM GLUCONATE 1 GM/10 ML VIAL IV ONE (21:20)
[2018-12-22] MEDS: ATORVASTATIN CALCIUM 40 MG TABLET PO SCH (21:23)
[2018-12-22] MEDS: CALCIUM GLUCONATE 1 GM in SODIUM CHLORIDE 0.9% 50 ML IV PRN (21:23)
--- NOTE | 2018-12-22 21:47 | NUR ---
ALSO REPORTED ABG'S TO DR ERICH LOGAN'S DRAWN 12/22/2018 @ 2103. ALL VALUES REPORTED. ALSO REPORTED ALL CURRENT VITAL SIGNS, INCLUDING C.O, C.I., SVR, SVV, ALL DRIPS INFUSING AND CURRENT RATES & DOSAGES. IMPELLA SETTINGS. ORDERS RECEIVED & WILL CARRY OUT. PRIMACORE DRIP ORDERED WELL 1 UNIT PRBC.
--- NOTE | 2018-12-22 22:00 | NUR ---
DAUGHTER, RIKKI, HERE TO STAY WITH PATIENT OVERNIGHT UPDATED HER REGARDING STATUS AND NEW ORDERS FOR PRIMACOR AND BLOOD TRANSFUSION. VERBALIZED UNDERSTANDING.
[2018-12-22] MEDS: MILRINONE-D5W 20 MG/100 ML 100 ML IV PRN (23:03)
[2018-12-22 23:44] LABS: HEMATOCRIT 22.5 % (42-54)
[2018-12-22] MEDS: DEXTROSE 50%-WATER 50 ML DISP.SYRIN IV PRN (23:55)
--- NOTE | 2018-12-22 23:55 | NUR ---
BLOOD SUGAR 53MG/DL PER GLUCOMETER. PATIENT DIAPHORETIC. GAVE 1 AMP D50W PER PROTOCOL. RECHECKED BLOOD SUGAR AT 2044 AND NOW 83MG/DL.
[2018-12-22] MEDS: SODIUM CHLORIDE 0.9% 500ML 500 ML IV SCH (23:56)
[2018-12-23] VITALS (22 sets, daily range): BP systolic 64–117; BP diastolic 41–69
[2018-12-23] MEDS: VASOPRESSIN 20 UNITS in SODIUM CHLORIDE 0.9% 50 ML IV PRN (00:33)
[2018-12-23 00:54] LABS: ABG BASE EXCESS -11.2 mmol/L (-2.0-3.0); ABG HCO3 13.8 mmol/L (21.0-28.0); ABG OXYGEN SATURATION 92.2 % (95.0-99.0); ABG PCO2 28 mmHg (35-48)
[2018-12-23] MEDS ORDERED: SODIUM BICARB 50MEQ 50ML VIAL ONE ×3 (01:02→01:36)
--- NOTE | 2018-12-23 01:02 | NUR ---
REPORTED ABG RESULTS TO DR JUNG DRAWN 12/23/2018 @0051 ORDERED TO COVER BASE EXCESS WITH SODIUM BICARB IV AND CONTINUE WITH BLOOD TRANSFUSION. ORDERS CARRIED OUT.
--- NOTE | 2018-12-23 01:11 | NUR ---
AROUSABLE BRIEFLY. WHEN ASKED IF HE IS IN PAIN, HE SHAKES HIS HEAD NO. MORE LETHARGIC NOW. UPDATED DR JUNG. Addendum: 12/23/18 at 0112 by JANIS GOLDSTEIN RN RN Amended: Links added.
--- NOTE | 2018-12-23 01:28 | NUR ---
BLOOD SUGAR 69MG/DL GAVE 1AMP D50W PER PROTOCOL. PATIENT DIAPHORETIC ONCE AGAIN. AROUSABLE, FOLLOWS SIMPLE COMMANDS.
[2018-12-23] MEDS ORDERED: SODIUM BICARB 50MEQ 50ML VIAL IV PRN (01:30)
[2018-12-23] MEDS: DEXTROSE 50%-WATER 50 ML DISP.SYRIN IV PRN (01:34)
--- NOTE | 2018-12-23 02:49 | NUR ---
BLOOD SUGAR 108MG/DL NO LONGER DIAPHORETIC. GAVE PARTIAL BED BATH.
[2018-12-23 03:26] LABS: HEMATOCRIT 23.7 % (42-54); MEAN CORPUSCULAR HEMOGLOBIN 30.8 pg (27.0-33.0); MEAN CORPUSCULAR HGB CONC 34.7 g/dL (32.0-36.0); MEAN CORPUSCULAR VOLUME 88.6 fL (79-99); NUCLEATED RED BLOOD CELLS 2.4 % (0.0-0.19); PLATELET COUNT (AUTO) 18 K/uL (130-400); RED BLOOD CELL COUNT(AUTO) 2.67 MIL/uL (4.50-6.20); RED CELL DISTRIBUTION WIDTH 16.5 % (11.0-15.5); WHITE BLOOD COUNT (AUTO) 15.5 K/uL (4.8-10.8)
[2018-12-23 03:57] LABS: ALBUMIN 3.1 g/dL (3.5-5.0); CREATININE 6.1 mg/dL (0.5-1.5)
[2018-12-23 04:21] LABS: BILIRUBIN,TOTAL 22.8 mg/dL (0.2-1.0); POTASSIUM 6.7 mmol/L (3.5-5.1)
[2018-12-23] MEDS: HYDROCORTISONE SOD SUCCINATE 100 MG/2 ML VIAL IV SCH ×2 (05:15→12:36)
[2018-12-23] MEDS: LEVOTHYROXINE 100 MCG TABLET PO SCH (05:15)
[2018-12-23] MEDS: LEVOTHYROXINE 75 MCG TABLET PO SCH (05:15)
--- NOTE | 2018-12-23 06:13 | NUR ---
BED BATH PROVIDED USING CHG WIPES PER HOSPITAL PROTOCOL. AROUSABLE. COMMUNICATES BY SHAKING/NODDING HEAD TO QUESTIONS ASKED. FOLLOWS SIMPLE COMMANDS. DAUGHTER, RIKKI AT BEDSIDE.
[2018-12-23] MEDS ORDERED: PHARMACY COMMUNICATION MISC SCH (06:30)
[2018-12-23] MEDS: ZOSYN 3.375GM+NS 50ML 50 ML IV SCH (07:39)
[2018-12-23] MEDS ORDERED: DEXTROSE 5%-WATER 500 ML IV ONE (07:49)
--- NOTE | 2018-12-23 07:50 | NUR ---
NAKITA MENDIOLA RN AND DR. ABEL HERE TO SEE PT AND WAS GIVEN UPDATES AND TREATMENTS OF ABG RESULTS. DAUGHTER AT BEDSIDE.
[2018-12-23] MEDS: THIAMINE HCL 100 MG/ML 2ML VIAL IVP SCH (07:57)
[2018-12-23 08:03] LABS: ABG BASE EXCESS -3.6 mmol/L (-2.0-3.0); ABG HCO3 19.6 mmol/L (21.0-28.0); ABG OXYGEN SATURATION 92.5 % (95.0-99.0); ABG PCO2 29 mmHg (35-48)
--- NOTE | 2018-12-23 08:09 | NUR ---
Patient attempted to see 6X already and as per Nursing patient is not ready for Physical Therapy Evaluation.Will remove from PT daily list until further notice from MD. Addendum: 12/23/18 at 0811 by TRENT TESFAYE, PT PT Amended: Links added.
[2018-12-23] MEDS: PANTOPRAZOLE 40 MG/VIAL IVP SCH (08:19)
[2018-12-23] MEDS: CALCIUM GLUCONATE 1 GM in SODIUM CHLORIDE 0.9% 50 ML IV PRN (08:37)
--- NOTE | 2018-12-23 08:45 | NUR ---
SCIENTIFIC INVESTIGATOR RADHA STALLINGS HAS MADE CONTACT WITH DAUGHTER RIKKI AND WILL ADVISE DR. Shannan ABEL THAT DAUGHTER NEEDS TO BE INFORMED ABOUT THE NEED TO TRANSFER PT TO A HIGHER LEVEL OF CARE. DR. ABEL WILL BE COMING BACK TO TALK TO DAUGHTER.
--- NOTE | 2018-12-23 09:13 | NUR ---
DR. ABEL HERE AND SPOKE WITH PATIENT'S DAUGHTER RIKKI AND ADVISED HER THAT PT WILL NEED TO BE TRANSFERRED TO [place] FOR A HIGHER LEVEL OF CARE. ADVISED DAUGHTER THAT HE HAS HAD LABORATORY LEVELS THAT THE TREATMENT THAT HE IS GETTING NOW IS NOT SUFFICIENT AND THAT HE HAS REQUIRED MEDICATIONS FOR MAINTAINING HIS BLOOD PRESSURE.
[2018-12-23 09:30] LABS: ABG BASE EXCESS -1.1 mmol/L (-2.0-3.0); ABG HCO3 21.6 mmol/L (21.0-28.0); ABG OXYGEN SATURATION 94.1 % (95.0-99.0); ABG PCO2 28 mmHg (35-48)
--- NOTE | 2018-12-23 10:30 | NUR ---
SPOKE WITH CACHORRO OLMSTEAD AMMUNITION SPECIALIST NURSE FROM THE TRANSFER CENTER IN [place]. INFORMED NURSE OF PRESENT STATUS AND LABS, INCLUDING VASOPRESSORS AND RATES.
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
--- NOTE | 2018-12-23 15:40 | NUR ---
EMS HERE AND PT WAS PREPARED FOR TRANSFER WITH IMPELLA IN PLACE AND DRIPS CONTINUED ORDERED PT HAD 2MG OF VERSED PRIOR TO BEING PLACED ON EMS STRETCHER DUE TO BEING RESTLESS PRIOR TO TRANSFER. REPORT WAS CALLED TO CHRISTINA CHEN FROM [facility] WHO WAS ADVISED OF PT'S DRIPS ON PUMPS AND THE IMPELLA THAT NEEDED TO BE RETURNED.
[2018-12-23] MEDS ORDERED: MIDAZOLAM HCL 1 MG/ML 2ML VIAL ONE (15:55)
--- NOTE | 2018-12-23 16:30 | NUR ---
PT'S CAME IN TO HUMAN ANATOMY TEACHER DAUGHTER'S BELONGING AND PT'S SON IN [place] PICKED UP HIS DENTURES AFTER HE GOT OUT OF WORK. DAUGHTER RIKKI HAD BEEN NOTIFIED OF PT'S DENTURES LEFT BEHIND AND HER CAME TO PICK THEM UP. Addendum: 12/24/18 at 0923 by HOLLIS KHAN RN RN PT'S SISTER NOT .
[2018-12-24] MEDS ORDERED: MIDAZOLAM HCL 1 MG/ML 2ML VIAL IVP SCH (09:30)
[2018-12-25 06:49] LABS: ABG OXYGEN SATURATION 41.2 % (95.0-99.0)
== END 2018-12-23 16:22 | disposition short-term general hospital (02) | DRG 215 ==
LOC: EDSTATUS 12-13 10:00 → DAHIP 12-16 06:27 → 2CV 12-16 12:31 → 2BH 12-17 15:50 → 2CH 12-18 03:41
PROVIDERS: ADMIT Thoracic Surgery (Cardiothoracic Vascular Surgery); ATTEND Thoracic Surgery (Cardiothoracic Vascular Surgery)
PROC: 02L70ZK Occlusion of Left Atrial Appendage, Open Approach (ICD-10-PCS; 2018-12-16)
PROC: 5A02210 Assistance with Cardiac Output using Balloon Pump, Continuous (ICD-10-PCS; 2018-12-16)
PROC: 0BH17EZ Insertion of Endotracheal Airway into Trachea, Via Natural or Artificial Opening (ICD-10-PCS; 2018-12-16)
PROC: 02HP32Z Insertion of Monitoring Device into Pulmonary Trunk, Percutaneous Approach (ICD-10-PCS; 2018-12-16)
PROC: 30233K1 Transfusion of Nonautologous Frozen Plasma into Peripheral Vein, Percutaneous Approach (ICD-10-PCS; 2018-12-16)
PROC: 30233N1 Transfusion of Nonautologous Red Blood Cells into Peripheral Vein, Percutaneous Approach (ICD-10-PCS; 2018-12-16)
PROC: 30233R1 Transfusion of Nonautologous Platelets into Peripheral Vein, Percutaneous Approach (ICD-10-PCS; 2018-12-16)
PROC: 021009W Bypass Coronary Artery, One Artery from Aorta with Autologous Venous Tissue, Open Approach (ICD-10-PCS; principal; 2018-12-16 08:00)
PROC: 02RG0JZ Replacement of Mitral Valve with Synthetic Substitute, Open Approach (ICD-10-PCS; 2018-12-16 08:00)
PROC: 02100Z9 Bypass Coronary Artery, One Artery from Left Internal Mammary, Open Approach (ICD-10-PCS; 2018-12-16 08:00)
PROC: 06BP0ZZ Excision of Right Saphenous Vein, Open Approach (ICD-10-PCS; 2018-12-16 08:00)
PROC: 5A1955Z Respiratory Ventilation, Greater than 96 Consecutive Hours (ICD-10-PCS; 2018-12-18)
PROC: 02HA0RZ Insertion of Short-term External Heart Assist System into Heart, Open Approach (ICD-10-PCS; 2018-12-19)
PROC: 5A0221D Assistance with Cardiac Output using Impeller Pump, Continuous (ICD-10-PCS; 2018-12-19)
PROC: 5A1D70Z Performance of Urinary Filtration, Intermittent, Less than 6 Hours Per Day (ICD-10-PCS; 2018-12-20)
PROC: 5A1D70Z Performance of Urinary Filtration, Intermittent, Less than 6 Hours Per Day (ICD-10-PCS; 2018-12-21)
PROC: 5A1D70Z Performance of Urinary Filtration, Intermittent, Less than 6 Hours Per Day (ICD-10-PCS; 2018-12-22)
PROC: 5A1D70Z Performance of Urinary Filtration, Intermittent, Less than 6 Hours Per Day (ICD-10-PCS; 2018-12-23)
DX: I25.10 Atherosclerotic heart disease of native coronary artery without angina pectoris (principal); R57.0 Cardiogenic shock; J18.9 Pneumonia, unspecified organism; I50.23 Acute on chronic systolic (congestive) heart failure; R65.11 Systemic inflammatory response syndrome (SIRS) of non-infectious origin with acute organ dysfunction; N18.6 End stage renal disease; J95.821 Acute postprocedural respiratory failure; N17.9 Acute kidney failure, unspecified; E87.0 Hyperosmolality and hypernatremia; I13.2 Hypertensive heart and chronic kidney disease with heart failure and with stage 5 chronic kidney disease, or end stage renal disease; Z68.41 Body mass index [BMI] 40.0-44.9, adult; E27.2 Addisonian crisis; D64.9 Anemia, unspecified; I25.5 Ischemic cardiomyopathy; K72.90 Hepatic failure, unspecified without coma; I48.0 Paroxysmal atrial fibrillation; I27.20 Pulmonary hypertension, unspecified; E87.5 Hyperkalemia; I34.0 Nonrheumatic mitral (valve) insufficiency; E78.5 Hyperlipidemia, unspecified; E11.22 Type 2 diabetes mellitus with diabetic chronic kidney disease; D69.6 Thrombocytopenia, unspecified; E66.01 Morbid (severe) obesity due to excess calories; G47.33 Obstructive sleep apnea (adult) (pediatric); Z96.641 Presence of right artificial hip joint; Z86.73 Personal history of transient ischemic attack (TIA), and cerebral infarction without residual deficits; Z95.0 Presence of cardiac pacemaker; Z88.5 Allergy status to narcotic agent; Z88.8 Allergy status to other drugs, medicaments and biological substances
CPT/HCPCS: 31500; 33990; 36415; 36430; 36556; 36589; 36600; 71045; 71046; 76705; 76770; 76998; 80048; 80053; 80061; 80074; 81001; 82247; 82248; 82330; 82435; 82533; 82728; 82803; 82947; 82948; 83036; 83540; 83550; 83605; 83735; 83880; 83935; 84100; 84132; 84295; 84300; 84443; 84480; 85014; 85018; 85025; 85027; 85049; 85060; 85347; 85610; 85730; 86850; 86880; 86900; 86901; 86922; 86927; 87040; 87071; 87077; 87088; 87186; 87205; 88305; 90935; 93005; 93306; 93308; 93318; 93451; 93880; 94002; 94003; 94010; 94150; 94660; A7048; C1752; C1769; C1892; C1894; C9113; G0378; J0171; J0282; J0330; J0461; J0610; J0690; J0697; J1100; J1265; J1644; J1720; J1815; J1940; J1956; J2001; J2150; J2250; J2260; J2370; J2405; J2440; J2543; J2704; J2710; J2720; J2795; J2930; J3010; J3411; J3475; J3480; J3490; J7030; J7040; J7060; J7070; J7189; P9012; P9016; P9017; P9034; P9045; P9046; P9047; Q9967